=== PATIENT | male | born 1950 | race Caucasian/White ===

== ENCOUNTER 2020-03-17 11:54 | Day surgery (SDC) | payer MEDICARE, SELFPAY ==
[2020-03-10 13:35] VITALS: BMI 34.8
--- NOTE | 2020-03-16 09:37 | HO.ANESPROP2 ---
Documented by User: Katie Ledbetter 03/16/20 09:38 HPI - Anesthesia Eval Consult details Narrative: 69yo M for Colonoscopy PMFSH Past Medical History Medical History ABMD (anterior basement membrane dystrophy) Anxiety and depression DDD (degenerative disc disease) Dyslipidemia GERD (gastroesophageal reflux disease) Mild cognitive impairment Short-term memory loss Sleep apnea Family History Family History Father No problems noted. Mother No problems noted. Surgical History Surgical History H/O transurethral resection of prostate History of hernia repair History of lumbar surgery Hx of colonoscopy Social History Social History Alcohol intake: current Alcohol intake frequency: holidays/special occasions only Smoking Status: Former smoker Smoking Quit Date: 1984 Use of substances other than those prescribed or required for medical reasons: No Advance Directives: No Advance Directives Information Provided: No Advance Directives on File: No Meds Allergies Allergy/AdvReac Type Severity Reaction Status Date / Time peanut [PEANUT] Allergy Intermediate ITCHING/HIV Unverified 02/11/20 16:53 ES ELASTIC Allergy Mild ITCHING Uncoded 02/11/20 16:53 peanuts Allergy Unknown rash Uncoded 02/11/20 16:53 Home Medications Medication Instructions Recorded Confirmed Type escitalopram oxalate 20 mg tablet 20 mg PO BEDTIME 02/11/20 03/10/20 History omeprazole 20 mg capsule,delayed 20 mg PO BEDTIME 02/11/20 03/10/20 History release tamsulosin 0.4 mg capsule 0.4 mg PO BEDTIME 02/11/20 03/10/20 History triamterene 37.5 1 tab PO BEDTIME 02/11/20 03/10/20 History mg-hydrochlorothiazide 25 mg tablet atorvastatin 20 mg PO BEDTIME 03/10/20 03/10/20 History Exam Exam Date and Time: March 16, 2020 0937 Height,Weight and Vital Signs: Height 5 ft 11 in Weight 113.398 kg Assessment and Plan Assessment Anesthesia Assessment: Chart Reviewed Documented by User: Lobito Bowles 03/17/20 12:50 PMFSH Past Medical History Medical History ABMD (anterior basement membrane dystrophy) Anxiety and depression DDD (degenerative disc disease) Dyslipidemia GERD (gastroesophageal reflux disease) Mild cognitive impairment Short-term memory loss Sleep apnea Family History Family History Father No problems noted. Mother No problems noted. Surgical History Surgical History H/O transurethral resection of prostate History of hernia repair History of lumbar surgery Hx of colonoscopy Social History Social History Alcohol intake: current Alcohol intake frequency: holidays/special occasions only Smoking Status: Former smoker Smoking Quit Date: 1984 Use of substances other than those prescribed or required for medical reasons: No Advance Directives: No Advance Directives Information Provided: No Advance Directives on File: No Meds Allergies Allergy/AdvReac Type Severity Reaction Status Date / Time peanut [PEANUT] Allergy Intermediate ITCHING/HIV Unverified 02/11/20 16:53 ES ELASTIC Allergy Mild ITCHING Uncoded 02/11/20 16:53 peanuts Allergy Unknown rash Uncoded 02/11/20 16:53 Home Medications Medication Instructions Recorded Confirmed Type escitalopram oxalate 20 mg tablet 20 mg PO BEDTIME 02/11/20 03/10/20 History omeprazole 20 mg capsule,delayed 20 mg PO BEDTIME 02/11/20 03/10/20 History release tamsulosin 0.4 mg capsule 0.4 mg PO BEDTIME 02/11/20 03/10/20 History triamterene 37.5 1 tab PO BEDTIME 02/11/20 03/10/20 History mg-hydrochlorothiazide 25 mg tablet atorvastatin 20 mg PO BEDTIME 03/10/20 03/10/20 History Exam Airway Mallampati Class: II TM Dist: >3cm Neck ROM: Full Heart: [id number]+[id number] Lungs: cta b/l Assessment and Plan Assessment Anesthesia Assessment: Anesthesia Plan Discussed, PAT Visit and Chart Reviewed Final Anesthetic Review NPO: Yes ASA Class: III Final Preanesthetic Review: No Changes in Pt Med Stat, Meds/Allgs Chart Reviewed, Consent Obtained/Reviewed and Anes Risks/Benef Reviewed Patient Risk: Intermediate Procedure Risk: Low Assessment/Block/Sedation in SS: Assess/Block/Sedation-SS Anesthetic Plan Anesthetic Plan: MAC: Disposition: Standard PACU
--- NOTE | 2020-03-16 22:52 | MHC.SHP ---
Pre-Procedural Eval Section A The patient is an INPATIENT: No Changes since office visit: No Cold of Flu in the past 2 weeks, No New Medical Problems, No Changes in Medication and No Patient answered all questions The History & Physical has been completed within 30 days and I have reviewed it.: Yes Section B Chief Complaint: Screening Allergies: Allergies Allergy/AdvReac Type Severity Reaction Status Date / Time peanut [PEANUT] Allergy Intermediate ITCHING/HIV Unverified 02/11/20 16:53 ES ELASTIC Allergy Mild ITCHING Uncoded 02/11/20 16:53 peanuts Allergy Unknown rash Uncoded 02/11/20 16:53 Plan Patient has been examined and remains a candidate for the planned procedure
[2020-03-17 12:45] VITALS: BP 148/80; PULSE 70; RESP 16; TEMP 36.4; O2SAT 98
[2020-03-17] MEDS: Lactated Ringers 1,000 ML 100 ML IVCONT (12:46)
--- NOTE | 2020-03-17 13:34 | PM.OP ---
Brief Operative Note Date of Service: 03/17/20 Pre-op diagnosis: screening Post-op diagnosis: same (colon polyps) Procedure: colonosocpy Surgeon: Shahzad Ayers Anesthesia: MAC Estimated blood loss (mL): 0 Pathology: other (polyps x2) Condition: stable Disposition: PACU
[2020-03-17 13:37] VITALS: BP 110/71; PULSE 72; RESP 12; TEMP 36.8; O2SAT 92
[2020-03-17 13:44] VITALS: BP 119/68; PULSE 68; RESP 17; O2SAT 97
[2020-03-17 13:53] VITALS: BP 127/74; PULSE 66; RESP 15; TEMP 36.8; O2SAT 97
[2020-03-17 14:03] VITALS: BP 127/74; PULSE 70; RESP 16; O2SAT 96
--- NOTE | 2020-03-17 19:06 | OP_ITS ---
SURGEON: Shahzad Ayers MD INDICATIONS: Colon cancer screening and prior history of adenomatous colon polyps. PREOPERATIVE DIAGNOSIS: POSTOPERATIVE DIAGNOSIS: PROCEDURE PERFORMED: Colonoscopy to the terminal ileum with snare polypectomy and biopsy. ESTIMATED BLOOD LOSS: COMPLICATIONS: ANESTHESIA: ASSISTANTS: SPECIMENS: MEDICATIONS: Monitored anesthesia care. DESCRIPTION OF PROCEDURE: History and physical performed. The risks and benefits of the procedure were explained to the patient. Informed consent was obtained. The patient was placed in the left lateral decubitus position. A digital rectal exam was performed and was found to be normal. The Olympus pediatric video colonoscope was introduced into the rectum and advanced to the cecum without difficulty. The cecum was identified by transillumination, palpation, and identification of ileocecal valve. Examination was performed and the scope was removed. He tolerated the procedure well and was taken to recovery area in stable condition. FINDINGS: The terminal ileum was normal. The visualized colonic mucosa was normal. The quality of the prep was good. Two polyps were identified. Both measured 6 mm were removed with biopsy forceps. Both were removed with a snare. The 2nd was recovered with biopsy forceps. No other polyps were identified. Retroflexed examination showed small internal hemorrhoids. IMPRESSION: Colon polyps. RECOMMENDATION: Follow up the biopsy results. MD HUNTER Reid/GREER / [id number]
== END 2020-03-17 14:47 | disposition home or self-care (01) ==
PROVIDERS: PCP Nurse Practitioner Family; Visit Provider Internal Medicine Gastroenterology
PROC: 0DJD8ZZ Inspection of Lower Intestinal Tract, Via Natural or Artificial Opening Endoscopic (ICD-10-PCS; CPT 45378; principal; 2020-03-17 13:00)
DX: Z12.11 Encounter for screening for malignant neoplasm of colon (principal); Z86.010 Personal history of colon polyps; D12.4 Benign neoplasm of descending colon; D12.5 Benign neoplasm of sigmoid colon; K57.30 Diverticulosis of large intestine without perforation or abscess without bleeding; K64.8 Other hemorrhoids; K21.9 Gastro-esophageal reflux disease without esophagitis; I10 Essential (primary) hypertension; Z79.899 Other long term (current) drug therapy
CPT/HCPCS: 45385; 45380; 88305

== ENCOUNTER 2020-04-23 12:26 | Outpatient (REF) | payer MEDICARE, SELFPAY ==
[2020-04-23 14:29] LABS: Anion Gap 12 (12-20); Blood Urea Nitrogen 11 mg/dL (9-16); Calcium 8.6 mg/dL (8.4-10.2); Carbon Dioxide 32 mmol/L (22-29); Chloride 99 mmol/L (96-108); Cholesterol 145 mg/dL; Estimated Glomerular Filt Rate > 60; Glucose Fasting 106 mg/dL (60-99); HDL Cholesterol 49 mg/dL; LDL Cholesterol Calculated 70 mg/dl; Potassium 3.4 mmol/l (3.3-5.1); Sodium 140 mmol/L (135-145); Triglycerides 130 mg/dL
[2020-04-23 14:55] LABS: TSH reflex Free T4 1.06 mIU/mL (0.32-4.0)
[2020-04-23 15:32] LABS: Prostate Specific Antigen Scr 0.84 ng/mL (<0.05-4.0)
== END 2020-04-23 12:27 | disposition home or self-care (01) ==
LOC: HO.HMGCLDS 12:26
PROVIDERS: PCP Nurse Practitioner Family; Visit Provider Nurse Practitioner Family
DX: Z00.00 Encounter for general adult medical examination without abnormal findings (principal); Z12.5 Encounter for screening for malignant neoplasm of prostate; Z13.29 Encounter for screening for other suspected endocrine disorder; Z13.220 Encounter for screening for lipoid disorders
CPT/HCPCS: 36415; 80048; 80061; 84153; 84443

== ENCOUNTER 2020-09-16 13:02 | Outpatient (REF) | payer MEDICARE, SELFPAY | END 2020-09-16 13:03 | disposition home or self-care (01) | LOC: HO.HMGCLDS 13:02 | PROVIDERS: PCP Nurse Practitioner Family; Visit Provider Urology | DX: Z12.5 Encounter for screening for malignant neoplasm of prostate (principal); N40.1 Benign prostatic hyperplasia with lower urinary tract symptoms; N13.8 Other obstructive and reflux uropathy | CPT/HCPCS: 36415; 84153 ==

== ENCOUNTER → 2020-09-23 14:25 | Outpatient (BNVA) | payer MEDICARE, SELFPAY | PROVIDERS: PCP Nurse Practitioner Family; Visit Provider Urology | DX: N40.1 Benign prostatic hyperplasia with lower urinary tract symptoms (principal); N13.8 Other obstructive and reflux uropathy; R97.20 Elevated prostate specific antigen [PSA] | CPT/HCPCS: 99212 ==

== ENCOUNTER 2021-02-02 12:08 | Outpatient (REF) | payer MEDICARE, SELFPAY ==
[2021-02-02 14:23] LABS: Alanine Aminotransferase 23 U/L (0-40); Albumin Level 4.4 g/dL (3.5-5.0); Alkaline Phosphatase 101 U/L (39-117); Anion Gap 14 (12-20); Aspartate Amino Transferase 18 U/L (5-37); Bilirubin Total 0.8 mg/dL (0.0-1.0); Blood Urea Nitrogen 11 mg/dL (9-16); Calcium 9.2 mg/dL (8.4-10.2); Carbon Dioxide 29 mmol/L (22-29); Chloride 103 mmol/L (96-108); Cholesterol 134 mg/dL; Estimated Glomerular Filt Rate > 60; Glucose Fasting 115 mg/dL (60-99); HDL Cholesterol 44 mg/dL; LDL Cholesterol Calculated 59 mg/dl; Potassium 3.6 mmol/L (3.3-5.1); Sodium 142 mmol/L (135-145); Total Protein 6.9 g/dL (6.5-8.0); Triglycerides 155 mg/dL
[2021-02-02 14:43] LABS: TSH reflex Free T4 1.02 uIU/mL (0.32-4.0)
== END 2021-02-02 12:09 | disposition home or self-care (01) ==
LOC: HO.HMGCLDS 12:08
PROVIDERS: PCP Nurse Practitioner Family; Visit Provider Nurse Practitioner Family
DX: E78.5 Hyperlipidemia, unspecified (principal)
CPT/HCPCS: 36415; 80053; 80061; 84443

== ENCOUNTER → 2021-09-28 14:30 | Outpatient (BNVA) | payer MEDICARE, SELFPAY | PROVIDERS: PCP Nurse Practitioner Family; Visit Provider Urology | DX: N40.1 Benign prostatic hyperplasia with lower urinary tract symptoms (principal); N13.8 Other obstructive and reflux uropathy; R97.20 Elevated prostate specific antigen [PSA] | CPT/HCPCS: 51798; 99212 ==

== ENCOUNTER 2021-12-12 12:34 | Outpatient (REF) | payer MEDICARE, SELFPAY ==
[2021-12-12 14:00] LABS: Appearance Urine Clear; Color Urine Yellow; Glucose Urine UA Negative (Negative); Leukocyte Esterase Urine Negative (Negative); Nitrite Urine Negative (Negative); Specific Gravity - Urine 1.015 (1.005-1.025); Urine Blood Negative (Negative); Urine Ketones Negative (Negative); Urine Protein Negative (Neg-Trace)
[2021-12-12 14:36] LABS: Alanine Aminotransferase 23 U/L (0-40); Albumin Level 4.2 g/dL (3.5-5.0); Alkaline Phosphatase 104 U/L (39-117); Anion Gap 14 (12-20); Aspartate Amino Transferase 17 U/L (5-37); Bilirubin Total 0.7 mg/dL (0.0-1.0); Blood Urea Nitrogen 9 mg/dL (9-16); Calcium 9.1 mg/dL (8.4-10.2); Carbon Dioxide 29 mmol/L (22-29); Chloride 105 mmol/L (96-108); Cholesterol 135 mg/dL; Estimated Glomerular Filt Rate > 60; Glucose Fasting 126 mg/dL (60-99); HDL Cholesterol 47 mg/dL; LDL Cholesterol Calculated 65 mg/dl; Potassium 3.8 mmol/L (3.3-5.1); Sodium 144 mmol/L (135-145); Total Protein 6.8 g/dL (6.5-8.0); Triglycerides 118 mg/dL
[2021-12-12 14:48] LABS: Prostate Specific Antigen Scr 0.66 ng/mL (<0.05-4.0); TSH reflex Free T4 1.41 uIU/mL (0.32-4.0)
== END 2021-12-12 12:35 | disposition home or self-care (01) ==
LOC: HO.HMGCLDS 12:34
PROVIDERS: PCP Nurse Practitioner Family; Visit Provider Nurse Practitioner Family
DX: Z12.5 Encounter for screening for malignant neoplasm of prostate (principal); R97.20 Elevated prostate specific antigen [PSA]; F41.9 Anxiety disorder, unspecified
CPT/HCPCS: 36415; 80053; 80061; 81003; 84153; 84443

== ENCOUNTER 2022-09-27 13:49 | Outpatient (REF) | payer MEDICARE, SELFPAY ==
[2022-09-27 17:44] LABS: Prostate Specific Antigen 0.66 ng/mL (<0.05-4.0)
== END 2022-09-27 13:50 | disposition home or self-care (01) ==
LOC: HO.HMGCLDS 13:49
PROVIDERS: PCP Nurse Practitioner Family; Visit Provider Urology
DX: Z12.5 Encounter for screening for malignant neoplasm of prostate (principal); N13.8 Other obstructive and reflux uropathy; R97.20 Elevated prostate specific antigen [PSA]; N40.1 Benign prostatic hyperplasia with lower urinary tract symptoms
CPT/HCPCS: 36415; 84153

== ENCOUNTER → 2022-09-29 14:41 | Outpatient (BNVA) | payer MEDICARE, SELFPAY | PROVIDERS: PCP Nurse Practitioner Family; Visit Provider Urology | DX: E11.69 Type 2 diabetes mellitus with other specified complication (principal); N52.1 Erectile dysfunction due to diseases classified elsewhere; N40.1 Benign prostatic hyperplasia with lower urinary tract symptoms; N13.8 Other obstructive and reflux uropathy | CPT/HCPCS: 51798; 99212 ==

== ENCOUNTER 2022-11-27 13:42 | Outpatient (REF) | payer MEDICARE, SELFPAY ==
[2022-11-27 16:14] LABS: MANUAL DIFF FLAG NO
[2022-11-27 16:15] LABS: Basophils Percent Auto 0.4 % (0-2); Eosinophils Absolute Auto 0.1 X10*3/uL (0.0-0.4); Hematocrit 44.9 % (42.0-52.0); Hemoglobin 15.3 g/dl (14.0-18.0); Lymphocytes Absolute Auto 1.1 X10*3/uL (1.2-4.9); Lymphocytes Percent Auto 24.1 % (20-40); Mean Corpuscular HGB Conc 34.1 g/dl (31.0-36.0); Mean Corpuscular Hemoglobin 31.6 pg (27.0-33.0); Mean Corpuscular Volume 92.8 fL (80.0-98.0); Mean Platelet Volume 11.8 fL (9.4-12.4); Monocytes Absolute Auto 0.4 X10*3/uL (0.1-1.2); Monocytes Percent Auto 8.6 % (2-11); Neutrophils Percent Auto 63.9 % (45-73); Platelet Count 166 X10*3/uL (160-400); Red Blood Count 4.84 X10*6/uL (4.60-5.80); Red Cell Distribution Width 13.3 % (11.0-16.0); White Blood Count 4.6 X10*3/uL (4.8-10.8)
[2022-11-28 02:22] LABS: Alanine Aminotransferase 22 U/L (0-40); Albumin Level 4.2 g/dL (3.5-5.0); Alkaline Phosphatase 90 U/L (39-117); Anion Gap 12 (12-20); Aspartate Amino Transferase 19 U/L (5-37); Bilirubin Total 0.8 mg/dL (0.0-1.0); Blood Urea Nitrogen 13 mg/dL (9-16); Calcium 9.3 mg/dL (8.4-10.2); Carbon Dioxide 27 mmol/L (22-29); Chloride 107 mmol/L (96-108); Cholesterol 138 mg/dL; Estimated Glomerular Filt Rate > 60; Glucose Fasting 116 mg/dL (60-99); HDL Cholesterol 52 mg/dL; LDL Cholesterol Calculated 66 mg/dl; Potassium 3.6 mmol/L (3.3-5.1); Sodium 142 mmol/L (135-145); TSH reflex Free T4 1.05 uIU/mL (0.32-4.0); Total Protein 6.9 g/dL (6.5-8.0); Triglycerides 102 mg/dL
[2022-11-28 02:27] LABS: Folate 15.2 ng/mL (> or = 4.0); Vitamin B12 526 pg/mL (200-900)
[2022-11-30 08:24] LABS: Methylmalonic Acid 125 nmol/L (87-318)
== END 2022-11-27 13:43 | disposition home or self-care (01) ==
LOC: HO.HMGCLDS 13:42
PROVIDERS: PCP Nurse Practitioner Family; Visit Provider Nurse Practitioner Family
DX: R41.3 Other amnesia (principal); E11.9 Type 2 diabetes mellitus without complications
CPT/HCPCS: 36415; 80053; 80061; 82607; 82746; 83921; 84443; 85025

== ENCOUNTER 2022-11-29 11:38 | Outpatient (REF) | payer MEDICARE, SELFPAY ==
[2022-11-29 16:06] LABS: Appearance Urine Clear; Color Urine Yellow; Glucose Urine UA Negative (Negative); Leukocyte Esterase Urine Negative (Negative); Nitrite Urine Negative (Negative); PH 5.5 (5.0-9.0); Specific Gravity - Urine 1.015 (1.005-1.025); Urine Blood Negative (Negative); Urine Ketones Negative (Negative); Urine Protein Negative (Neg-Trace)
[2022-11-29 16:40] LABS: Creatinine Urine 99.19 mg/dL; Microalbumin Urine < 5.0 mg/L
== END 2022-11-29 11:39 | disposition home or self-care (01) ==
LOC: HO.HMGCLNP 11:38
PROVIDERS: PCP Nurse Practitioner Family; Visit Provider Nurse Practitioner Family
DX: E11.9 Type 2 diabetes mellitus without complications (principal)
CPT/HCPCS: 81003; 82043

== ENCOUNTER 2022-11-29 12:58 | Outpatient (AMB) | payer MEDICARE, SELFPAY ==
--- NOTE | 2022-11-29 13:10 | MHC.PC.OV ---
Vital Signs 11/29/22 13:11 Height 5 ft 11 in Weight 247 lb 8 oz BMI 34.5 BP 130/86 Blood Pressure Location Rt brachial Position Sitting Pulse 71 Pulse Source Pulse Oximeter Pulse Oximetry (%) 97 Oxygen Delivery Method Room Air Intake Visit Reasons: 4 month follow up Allergies peanut [PEANUT] Allergy (Intermediate, Verified 09/29/22 15:01) ITCHING/HIVES naproxen Adverse Reaction (Mild, Verified 09/29/22 15:01) Hives ELASTIC Allergy (Mild, Uncoded 09/29/22 15:01) ITCHING Tobacco use date assessed: 07/26/21 HPI 4 month follow up HPI Details Pt is a diabetic, on a statin. A1c in office today is 5.4. Due for microalbumin, will order. Denies polyuria, polydipsia, does report neuropathy. Pt denies any signs and symptoms of hypoglycemia and does know how to correct it. Pt reports that his blood sugar averages in the 130s-160s. [facility] Medical History ABMD (anterior basement membrane dystrophy) Anxiety and depression DDD (degenerative disc disease) Dyslipidemia GERD (gastroesophageal reflux disease) Irregular heart rhythm Mild cognitive impairment Short-term memory loss Sleep apnea Surgical History H/O transurethral resection of prostate History of hernia repair History of lumbar surgery Hx of colonoscopy Family History Father No problems noted. Mother No problems noted. Social History Housing: House Alcohol intake: current Alcohol intake frequency: holidays/special occasions only Patient Tobacco Use Status: Former Tobacco user Quit Date: 1984 Years Smoked: Quit in 1984 e-Cigarette/Vaping Use: Never Used Second Hand Smoke Exposure: No Current occupational status: retired Cognitive needs: No Hearing needs: No Vision needs: No Questionnaire Thrive Questionnaire Date Thrive assessed: 04/27/22 NIA-7 AMB Questionnaire NIA-7 Date NIA - 7 assessed: 04/27/22 Source: Developed by Drs. Parish L. DomoChandrika jones, Tod Keen and colleagues, with an educational florina from [employer]. Review of Systems Const Reports as per HPI Physical exam (Primary Care) Vital Signs: Last Vital Signs Pulse 71 11/29/22 13:11 BP 130/86 11/29/22 13:11 Pulse Ox 97 11/29/22 13:11 Oxygen Delivery Method Room Air 11/29/22 13:11 BMI result Body Mass Index 34.5 Tobacco/Smoking Status: Tobacco use Status Tobacco use date assessed 07/26/21 11/29/22 13:10 Patient Tobacco Use Status Former Tobacco user 11/29/22 13:10 Tobacco use type 07/28/22 13:56 e-Cigarette/Vaping Use Never Used 11/29/22 13:10 Thrive Assessment: Date of Thrive Assessment Date Thrive assessed 04/27/22 11/29/22 13:10 Const General: cooperative Nutritional Appearance: obese Orientation/consciousness: patient oriented x3 Resp Effort & Inspection: normal respiratory effort Auscultation: clear to auscultation bilaterally Cardio Rate: regular rate Rhythm: regular rhythm Heart sounds: S1 normal heart sound present and S2 normal heart sound present Neuro General: patient oriented x3 Extrem Other: bilat feet: + sensation with use of monofilament Psych Appearance: grossly normal Mental Status: mental status grossly normal Speech and movement: Normal speech and movement present Affect: normal affect Attitude: cooperative Thought process: Normal thought process present Thought content: Normal thought content present Insight: Good insight present (Psych) Judgement: Good judgement present (Psych) Results AMB Hemoglobin A1c AMB Hemoglobin A1c 5.4 % Last Edit by Destini Panchal CMA on 11/29/22 13:54 Results Reviewed Results Reviewed: Laboratory Last Values Hgb A1c (Clinic) 5.4 % (4.0-6.0) 11/29/22 13:32 Assessment and Plan Assessment & Plan (1) Newly diagnosed diabetes: Code(s): E11.9 - Type 2 diabetes mellitus without complications Plan The patient agreed to the use of a health care / medical job titles for this encounter. Scribed for YASMINE Nayak by Gabrielle Aquino health care / medical job titles, on 11/29/2022 at 13:30 EST. Orders: Orders AMB Hemoglobin A1c Today E11.9 - Type 2 diabetes mellitus without complications Medications: New fluocinonide 0.05% 1 appl topical BID-QID PRN 60 mL 1RF rash Coding Level of Care Code Est Pt Level 3 (11288) Diagnoses Newly diagnosed diabetes E11.9
[2022-11-29 13:11] VITALS: BP 130/86; PULSE 71; O2SAT 97; BMI 34.5
== END 2022-11-29 14:20 | disposition home or self-care (01) ==
PROVIDERS: PCP Nurse Practitioner Family; Visit Provider Nurse Practitioner Family
DX: E11.9 Type 2 diabetes mellitus without complications (principal)
CPT/HCPCS: 83036; 99213

== ENCOUNTER 2023-01-03 14:02 | Outpatient (AMB) | payer MEDICARE, SELFPAY ==
--- NOTE | 2023-01-03 14:03 | A.OFFVIS_ITS ---
Intake Intake Visit Reasons: 3m follow up Intake Note: Patient is present for Telephone Follow up Urology Med: Tamsulosin, Tadalafil Antibiotic Allergy:None Blood Thinner: None Pharmacy: [facility] Allergies peanut [PEANUT] Allergy (Intermediate, Verified 01/03/23 14:03) ITCHING/HIVES naproxen Adverse Reaction (Mild, Verified 01/03/23 14:03) Hives ELASTIC Allergy (Mild, Uncoded 01/03/23 14:03) ITCHING HPI HPI Comments History of Present Illness Details Colton is a pleasant male. He is a patient Dr. Powers. He is seen for current urologic conditions - BPH - prior elevated PSA - erectile dysfunction Telemedicine Evaluation 15 min Consultation [employer] attempted PVR low PSA low Secondary conditions erectile dysfunction in setting of diabetes Did have some leg swelling with tadalafil 10 mg daily Will try every other day Erectile dysfunction in setting of type 2 diabetes Type 2 diabetes on metformin Other medications include buspirone, escitalopram Medications - 10mg daily - had leg swelling Lower urinary tract symptoms Good control with tamsulosin Reports occasional hesitancy, occasional nocturia but overall good stream and effective emptying No noted side effects Prior prostate intervention - TURP in the past PSA 09/03 0.7, 09/05 0.6 PFSH Medical History Irregular heart rhythm Sleep apnea Mild cognitive impairment Short-term memory loss Dyslipidemia ABMD (anterior basement membrane dystrophy) DDD (degenerative disc disease) GERD (gastroesophageal reflux disease) Anxiety and depression Surgical History Hx of colonoscopy H/O transurethral resection of prostate History of lumbar surgery History of hernia repair Family History Father No problems noted. Mother No problems noted. Social History Housing: House Alcohol intake: current Alcohol intake frequency: holidays/special occasions only Patient Tobacco Use Status: Former Tobacco user Quit Date: 1984 Years Smoked: Quit in 1984 e-Cigarette/Vaping Use: Never Used Second Hand Smoke Exposure: No Current occupational status: retired Cognitive needs: No Hearing needs: No Vision needs: No Review of Systems Const All systems reviewed & are unremarkable except as noted in HPI and below Reports no additional complaints Resp Reports no additional complaints GI Reports no additional complaints Reports as per HPI Musc Reports no additional complaints Physical Exam Telemedicine evaluation Appropriate responses Regular breathing rate and rhythm HEENT Head: Yes normal to inspection Ears: hearing grossly normal bilaterally Eyes General: appearance normal, both eyes and all related structures Neck Neck: Yes normal visual inspection Chest Chest palpation & inspection: normal inspection of the chest Resp Effort & Inspection: normal respiratory effort and able to speak in complete sentences Assessment & Plan Assessment & Plan (1) Erectile dysfunction associated with type 2 diabetes mellitus: Code(s): E11.69 - Type 2 diabetes mellitus with other specified complication; N52.1 - Erectile dysfunction due to diseases classified elsewhere (2) Elevated PSA: Code(s): R97.20 - Elevated prostate specific antigen [PSA] (3) BPH w urinary obs/LUTS: Code(s): N40.1 - Benign prostatic hyperplasia with lower urinary tract symptoms; N13.8 - Other obstructive and reflux uropathy Plan Three month follow-up Patient Instructions: Imaging studies, laboratory and physical exam results were discussed and reviewed in detail. No major barriers to patient understanding were identified. An opportunity to ask questions regarding the treatment plan was provided. All questions were answered. The patient expressed understanding and agreement with the above treatment plan. The patient is aware they should contact our office by phone for worsening of their current condition or the appearance of new urologic symptoms. Compliance is encouraged with any medications and followup testing that is ordered. It is a privilege to participate in the urologic care of your patient. If you have any questions or concerns regarding treatment for the above conditions, or other urologic issues, please do not hesitate to contact me. The office telephone contact is [phone]. This note is constructed using voice recognition software. While every effort has been made to ensure accuracy special trackwork blacksmith errors may have been included. Yours sincerely, Dr Jose Pandya MD, [facility] - Urology Providers of Expert, Compassionate Care for the Genitourinary System Telehealth Telehealth Location of provider rendering services: practice address Location of patient: address on file Patient Identification confirmed using: Name, : Yes Telehealth method: video Patient verbally consented to treatment: Yes Patient verbally consented to billing insurance company: Yes Patient informed of any privacy concerns related to visit: Yes Coding Level of Care Code Tele Est Pt Level 4 (11660) Diagnoses Erectile dysfunction associated with type 2 diabetes mellitus E11.69; N52.1 Elevated PSA R97.20 BPH w urinary obs/LUTS N40.1; N13.8
== END 2023-01-03 14:14 | disposition home or self-care (01) ==
LOC: HO.HUSH 14:02
PROVIDERS: PCP Nurse Practitioner Family; Visit Provider Urology
DX: E11.69 Type 2 diabetes mellitus with other specified complication (principal); N52.1 Erectile dysfunction due to diseases classified elsewhere; R97.20 Elevated prostate specific antigen [PSA]; N40.1 Benign prostatic hyperplasia with lower urinary tract symptoms; N13.8 Other obstructive and reflux uropathy
CPT/HCPCS: 99214

== ENCOUNTER → 2023-01-03 14:02 | Outpatient (BNVA) | payer MEDICARE, SELFPAY | PROVIDERS: PCP Nurse Practitioner Family; Visit Provider Urology ==

== ENCOUNTER 2023-01-25 08:53 | Outpatient (REF) | payer MEDICARE, SELFPAY ==
[2023-01-25 11:32] LABS: Creatinine Urine 126.47 mg/dL; Microalbumin Urine < 5.0 mg/L
[2023-01-26 19:43] LABS: Homocysteine 10.8 umol/L (<11.4)
== END 2023-01-25 08:54 | disposition home or self-care (01) ==
LOC: HO.LAB 08:53
PROVIDERS: PCP Nurse Practitioner Family; Visit Provider Nurse Practitioner Family
DX: E11.9 Type 2 diabetes mellitus without complications (principal); R41.3 Other amnesia
CPT/HCPCS: 36415; 82043; 82570; 83090

== ENCOUNTER 2023-04-06 13:23 | Outpatient (AMB) | payer MEDICARE, SELFPAY ==
--- NOTE | 2023-04-06 13:52 | MHC.OFFVIS ---
Intake Intake Visit Reasons: 3m follow up Allergies peanut [PEANUT] Allergy (Intermediate, Verified 01/03/23 14:03) ITCHING/HIVES naproxen Adverse Reaction (Mild, Verified 01/03/23 14:03) Hives ELASTIC Allergy (Mild, Uncoded 01/03/23 14:03) ITCHING HPI HPI Comments History of Present Illness Details Colton is a pleasant male. He is a patient Dr. Powers. He is seen for current urologic conditions - BPH - prior elevated PSA - erectile dysfunction Telemedicine Evaluation 15 min Consultation [employer] Video attempted Follow-up from trial of tadalafil every other day Continued benefit Six month follow-up PVR Erectile dysfunction in setting of type 2 diabetes Type 2 diabetes on metformin Other medications include buspirone, escitalopram Medications - 10mg daily - had leg swelling Responded to every other day Lower urinary tract symptoms Good control with tamsulosin Reports occasional hesitancy, occasional nocturia but overall good stream and effective emptying No noted side effects Prior prostate intervention - TURP in the past PSA 09/03 0.7, 09/05 0.6 PFSH Medical History Irregular heart rhythm Sleep apnea Mild cognitive impairment Short-term memory loss Dyslipidemia ABMD (anterior basement membrane dystrophy) DDD (degenerative disc disease) GERD (gastroesophageal reflux disease) Anxiety and depression Surgical History Hx of colonoscopy H/O transurethral resection of prostate History of lumbar surgery History of hernia repair Family History Father No problems noted. Mother No problems noted. Social History Housing: House Alcohol intake: current Alcohol intake frequency: holidays/special occasions only Patient Tobacco Use Status: Former Tobacco user Quit Date: 1984 Years Smoked: Quit in 1984 e-Cigarette/Vaping Use: Never Used Second Hand Smoke Exposure: No Current occupational status: retired Cognitive needs: No Hearing needs: No Vision needs: No Review of Systems Const All systems reviewed & are unremarkable except as noted in HPI and below Reports no additional complaints Resp Reports no additional complaints GI Reports no additional complaints Reports as per HPI Musc Reports no additional complaints Physical Exam Telemedicine evaluation Appropriate responses Regular breathing rate and rhythm HEENT Head: Yes normal to inspection Ears: hearing grossly normal bilaterally Eyes General: appearance normal, both eyes and all related structures Neck Neck: Yes normal visual inspection Chest Chest palpation & inspection: normal inspection of the chest Resp Effort & Inspection: normal respiratory effort and able to speak in complete sentences Assessment & Plan Assessment & Plan (1) Erectile dysfunction associated with type 2 diabetes mellitus: Code(s): E11.69 - Type 2 diabetes mellitus with other specified complication; N52.1 - Erectile dysfunction due to diseases classified elsewhere (2) BPH w urinary obs/LUTS: Code(s): N40.1 - Benign prostatic hyperplasia with lower urinary tract symptoms; N13.8 - Other obstructive and reflux uropathy Plan Six month follow-up PVR Patient Instructions: Imaging studies, laboratory and physical exam results were discussed and reviewed in detail. No major barriers to patient understanding were identified. An opportunity to ask questions regarding the treatment plan was provided. All questions were answered. The patient expressed understanding and agreement with the above treatment plan. The patient is aware they should contact our office by phone for worsening of their current condition or the appearance of new urologic symptoms. Compliance is encouraged with any medications and followup testing that is ordered. It is a privilege to participate in the urologic care of your patient. If you have any questions or concerns regarding treatment for the above conditions, or other urologic issues, please do not hesitate to contact me. The office telephone contact is [phone]. This note is constructed using voice recognition software. While every effort has been made to ensure accuracy media services specialist errors may have been included. Yours sincerely, Dr Jose Pandya MD, [facility] - Urology Providers of Expert, Compassionate Care for the Genitourinary System Telehealth Telehealth Location of provider rendering services: practice address Location of patient: address on file Patient Identification confirmed using: Name, : Yes Telehealth method: video Patient verbally consented to treatment: Yes Patient verbally consented to billing insurance company: Yes Patient informed of any privacy concerns related to visit: Yes Coding Level of Care Code Tele Est Pt Level 3 (50548) Diagnoses Erectile dysfunction associated with type 2 diabetes mellitus E11.69; N52.1 BPH w urinary obs/LUTS N40.1; N13.8
== END 2023-04-06 14:31 | disposition home or self-care (01) ==
LOC: HO.HUSH 13:23
PROVIDERS: PCP Nurse Practitioner Family; Visit Provider Urology
DX: E11.69 Type 2 diabetes mellitus with other specified complication (principal); N52.1 Erectile dysfunction due to diseases classified elsewhere; N40.1 Benign prostatic hyperplasia with lower urinary tract symptoms; N13.8 Other obstructive and reflux uropathy
CPT/HCPCS: 99213

== ENCOUNTER → 2023-04-06 13:23 | Outpatient (BNVA) | payer MEDICARE, SELFPAY | PROVIDERS: PCP Nurse Practitioner Family; Visit Provider Urology ==

== ENCOUNTER 2023-05-22 09:01 | Outpatient (AMB) | payer MEDICARE, SELFPAY ==
[2023-05-22 10:19] VITALS: BP 140/70; PULSE 73; TEMP 36.5; O2SAT 96; BMI 36.7
--- NOTE | 2023-05-22 10:19 | AM.OFFWIN_ITS ---
Intake Vital Signs 05/22/23 10:19 Height 5 ft 11 in Weight 263 lb BMI 36.7 BP 140/70 H Blood Pressure Location Lt brachial Position Sitting Pulse 73 Pulse Source Pulse Oximeter Temp 97.7 F Temp Source Temporal Artery Scan Pulse Oximetry (%) 96 Oxygen Delivery Method Room Air Intake Visit Reasons: EP lower LFT side back pain (lobby) Intake Note: pt is here today for lower lft side back pain started 1 week ago Patient Tobacco Use Status: Former Tobacco user Quit Date: 1984 Allergies peanut [PEANUT] Allergy (Intermediate, Verified 05/22/23 10:20) ITCHING/HIVES naproxen Adverse Reaction (Mild, Verified 05/22/23 10:20) Hives ELASTIC Allergy (Mild, Uncoded 01/03/23 14:03) ITCHING Do you need a note to return to daycare/school/sports/work: No HPI EP lower LFT side back pain (lobby) HPI Details Patient presents to the office for a sick visit. Complaining of lower back pain for the past week. No history of fall or trauma prior to the onset of symptoms. No urinary incontinence. No fevers or chills. Pain is worse on bending forwards or sideways. Relieve done sitting down. Pain is radiating into the gluteal area. [facility] Medical History Irregular heart rhythm Sleep apnea Mild cognitive impairment Short-term memory loss Dyslipidemia ABMD (anterior basement membrane dystrophy) DDD (degenerative disc disease) GERD (gastroesophageal reflux disease) Anxiety and depression Surgical History Hx of colonoscopy H/O transurethral resection of prostate History of lumbar surgery History of hernia repair Family History Father No problems noted. Mother No problems noted. Social History Housing: House Alcohol intake: current Alcohol intake frequency: holidays/special occasions only Patient Tobacco Use Status: Former Tobacco user Quit Date: 1984 Years Smoked: Quit in 1984 e-Cigarette/Vaping Use: Never Used Second Hand Smoke Exposure: No Current occupational status: retired Cognitive needs: No Hearing needs: No Vision needs: No Physical Exam Vital Signs: Last Vital Signs Temp 97.7 F 05/22/23 10:19 Pulse 73 05/22/23 10:19 BP 140/70 H 05/22/23 10:19 Pulse Ox 96 05/22/23 10:19 Oxygen Delivery Method Room Air 05/22/23 10:19 BMI result Body Mass Index 36.7 Back/Spine/Pelvis Other: No spinal tenderness or paraspinal spasm. Range of motion at the right and left hip is adequate. Assessment & Plan Assessment & Plan (1) Lower thoracic back pain: Code(s): M54.6 - Pain in thoracic spine Plan: Meloxicam and cyclobenzaprine called in. . Patient was advised rest. Note for work if necessary provided. Once pain symptoms subside, patient should start physical therapy. If symptoms worsen to follow-up here. Coding Level of Care Code Est Pt Level 3 (66541) Diagnoses Lower thoracic back pain M54.6
== END 2023-05-22 11:09 | disposition home or self-care (01) ==
PROVIDERS: PCP Nurse Practitioner Family; Visit Provider Internal Medicine
DX: M54.6 Pain in thoracic spine (principal)
CPT/HCPCS: 99213

== ENCOUNTER 2023-06-28 09:25 | Outpatient (AMB) | payer MEDICARE, SELFPAY ==
--- NOTE | 2023-06-28 09:32 | MHC.PC.OV ---
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 Accompanied by: Spouse Allergies peanut [PEANUT] Allergy (Intermediate, Verified 06/28/23 11:23) ITCHING/HIVES naproxen Adverse Reaction (Mild, Verified 06/28/23 11:23) Hives ELASTIC Allergy (Mild, Uncoded 06/28/23 11:23) ITCHING Medication List - Last Reconciled 06/28/23 by WING Chong- atorvastatin 20 mg PO DAILY buspirone 7.5 mg PO BID 90 days compr.stocking,knee,long,x-lrg daily use [compress stockings 4 pairs ] [CPAP with tubing and mask place mask as directed on face prior to falling asleep with settings prescribed by [facility] ] cyclobenzaprine 10 mg PO BEDTIME escitalopram oxalate 20 mg PO BEDTIME famotidine (Zantac-360 (famotidine)) 20 mg PO BEDTIME Flomax (tamsulosin) 0.4 mg PO BEDTIME 90 days NS fluocinonide 0.05% 1 appl topical BID-QID PRN lancets (OneTouch Delica Plus Lancet) test blood sugar twice a day memantine (Namenda) 5 mg PO BID omeprazole 20 mg PO DAILY OneTouch Delica Lancets (lancets) Use to check blood sugar twice daily, once fasting and another random during the day NS OneTouch Ultra Test (blood sugar diagnostic) Use to check blood sugar twice daily, once fasting and another random during the day NS OneTouch Ultra2 Meter (blood-glucose meter) Use to check blood sugar twice daily, once fasting and another random during the day NS tadalafil 10 mg PO DAILY 90 days triamterene-hydrochlorothiazid 37.5-25 mg 1 tab PO QAM 90 days Tobacco use date assessed: 06/28/23 Fall risk assessment: No Falls in past year Last assessed Fall Risk: 06/28/23 Dental Screening Dental Screen Date: 06/28/23 Did you have a dental visit in the last 12 months?: Yes Did you have a dental problem in the last 6 months where you did not have access to dental care?: No Was dental information given to patient?: Yes HPI 3M Follow up, rescheduled from 03/15 HPI Details Pt is a diabetic, on a statin. A1C in office today is 6.6. Microalbumin is up to date. Denies polyuria, polydipsia, does report neuropathy. Pt denies any signs and symptoms of hypoglycemia and does know how to correct it. Pt reports swelling to his LLE. Denies calf redness and warmth, does report calf tenderness. Will order US to r/o DVT. Pt reports pain in his feet. ? neuropathy component. Will send gabapentin. Refuses vaccinations. [facility] Medical History Irregular heart rhythm Sleep apnea Mild cognitive impairment Short-term memory loss Dyslipidemia ABMD (anterior basement membrane dystrophy) DDD (degenerative disc disease) GERD (gastroesophageal reflux disease) Anxiety and depression Surgical History Hx of colonoscopy H/O transurethral resection of prostate History of lumbar surgery History of hernia repair Family History Father No problems noted. Mother No problems noted. Social History Housing: House Alcohol intake: current Alcohol intake frequency: holidays/special occasions only Patient Tobacco Use Status: Former Tobacco user Quit Date: 1984 Smoked: Quit in 1984 e-Cigarette/Vaping Use: Never Used Second Hand Smoke Exposure: No Current occupational status: retired Cognitive needs: No Hearing needs: No Vision needs: No Questionnaire PHQ-9 Over the last 2 weeks, how often have you been bothered by any of the following problems? 1. Little interest or pleasure in doing things: not at all 2. Feeling down, depressed, or hopeless: not at all 3. Trouble falling or staying asleep, or sleeping too much: several days 4. Feeling tired or having little energy: more than half the days 5. Poor appetite or overeating: not at all 6. Feeling bad about yourself - or that you are a failure or have let yourself or your family down: not at all 7. Trouble concentrating on things, such as reading the newspaper or watching television: not at all 8. Moving or speaking so slowly that other people could have noticed. Or the opposite - being so fidgety or restless that you have been moving around a lot more than usual: not at all 9. Thoughts that you would be better off or of hurting yourself in some way: not at all Total score: 3 Depression Screening Interpretation: Negative Depression Screening Done: Yes 41802 - PHQ-9 Billing: Yes Source: Developed by Drs. Parish Oliveros, Chandrika Bob, Tod Keen and colleagues, with an educational florina from [employer]. Thrive Questionnaire Date Thrive assessed: 06/28/23 I am a: Patient What is your living situation today?: I have a steady place to live Within the past 12 months, did the food you bought not last and you didn't have the money to get more?: Never true Within the past 12 months, did you worry whether your food would run out before you got money to buy more?: Never true Do you have trouble paying for medicines?: No Do you have trouble getting transportation to medical appointments?: No Do you have trouble paying your heating and electricity bill?: No Do you have trouble taking care of your child, family member or friend?: No Do you have trouble with day-to-day activities such as bathing, preparing meals, shopping, managing finances, etc.?: No Are you currently unemployed and looking for a job?: No Are you interested in more education?: No Please select the resources that you would like help with: None Currently or been in a relationship where the following occur: no concerns reported THRIVE Score: 0 AUDIT C Alcohol Use Questionnaire (AUDIT-C) 1. How often do you have a drink containing alcohol?: Monthly or less Total Score: 1 Score Reviewed/Action Taken: Yes NIA-7 AMB Questionnaire NIA-7 Date NIA - 7 assessed: 06/28/23 Feeling nervous, anxious, or on edge: 0 = Not at all Not being able to stop or control worryin = Not at all Worrying too much about different things: 0 = Not at all Trouble relaxin = Not at all Being so restless that it is hard to sit still: 0 = Not at all Becoming easily annoyed or irritable: 3 = Nearly every day Feeling afraid as if something awful might happen: 0 = Not at all Total NIA-7 score (0-4 normal; 5-9 mild; 10-14 moderate; 15-21 severe): 3 Source: Developed by Drs. Parish Oliveros, Chandrika Bob, Tod Keen and colleagues, with an educational florina from [employer]. NIA-7 Assessment Billing NIA-7 Assessment Tool: NIA-7 Assessment 17818 Review of Systems Const Reports as per HPI Physical exam (Primary Care) Vital Signs: Last Vital Signs Pulse 70 06/28/23 09:34 BP 132/74 06/28/23 09:52 Pulse Ox 94 06/28/23 09:34 Oxygen Delivery Method Room Air 06/28/23 09:34 BMI result Body Mass Index 36.4 Tobacco/Smoking Status: Tobacco use Status Tobacco use date assessed 06/28/23 06/28/23 09:37 Patient Tobacco Use Status Former Tobacco user 06/28/23 09:37 Tobacco use type 07/28/22 13:56 e-Cigarette/Vaping Use Never Used 06/28/23 09:37 PHQ-9: PHQ-9 Score PHQ-9: Total score 3 06/28/23 09:54 Depression Screening Interpretation: Negative Thrive Assessment: Date of Thrive Assessment Date Thrive assessed 06/28/23 06/28/23 09:54 Currently or been in a relationship where the following occur: no concerns reported Const General: cooperative Orientation/consciousness: patient oriented x3 Resp Effort & Inspection: normal respiratory effort Auscultation: clear to auscultation bilaterally Cardio Rate: regular rate Rhythm: regular rhythm Heart sounds: S1 normal heart sound present and S2 normal heart sound present Neuro General: patient oriented x3 Extrem Other: bilat feet: + sensation with use of monofilament, feet intact, +1 edema to LLE, slight calf tenderness with palpation Psych Appearance: grossly normal Mental Status: mental status grossly normal Speech and movement: Normal speech and movement present Affect: normal affect Attitude: cooperative Thought process: Normal thought process present Thought content: Normal thought content present Insight: Good insight present (Psych) Judgement: Good judgement present (Psych) Assessment and Plan Assessment & Plan (1) Diabetes: Code(s): E11.9 - Type 2 diabetes mellitus without complications Plan: Labs ordered (2) Swelling of left lower extremity: Code(s): M79.89 - Other specified soft tissue disorders Plan: US ordered Plan The patient agreed to the use of a medical practice manager for this encounter. Scribed for YASMINE Nayak by Gabrielle Aquino medical practice manager, on 06/28/2023 at 09:50 EST. Orders: Orders Comprehensive [place]. Panel Fast Today E11.9 - Type 2 diabetes mellitus without complications TSH reflex Free T4 Today E11.9 - Type 2 diabetes mellitus without complications UA CC w/rflx Micro + Cult Today E11.9 - Type 2 diabetes mellitus without complications Complete Blood Count Auto Diff Today E11.9 - Type 2 diabetes mellitus without complications Lipid Panel Today E11.9 - Type 2 diabetes mellitus without complications US venous duplex LE LT Today M79.89 - Other specified soft tissue disorders Medications: New gabapentin 200 mg (2 x 100 mg) PO BEDTIME 60 caps 2RF 30 days Coding Level of Care Code Est Pt Level 3 (70148) Diagnoses Diabetes E11.9 Swelling of left lower extremity M79.89 Additional Codes NIA-7 Assessment Billing - NIA-7 Assessment Tool: NIA-7 Assessment [id number] ([id number])
[2023-06-28 09:34] VITALS: BP 150/80; PULSE 70; O2SAT 94; BMI 36.4
[2023-06-28 09:52] VITALS: BP 132/74
== END 2023-06-28 10:44 | disposition home or self-care (01) ==
PROVIDERS: PCP Nurse Practitioner Family; Visit Provider Nurse Practitioner Family
DX: E11.9 Type 2 diabetes mellitus without complications (principal); M79.89 Other specified soft tissue disorders
CPT/HCPCS: 99213

== ENCOUNTER 2023-06-28 15:19 | Outpatient (REF) | payer MEDICARE, SELFPAY ==
--- NOTE | ~2023-06-28 | US_ITS ---
EXAMINATION: US VENOUS ULTRASOUND WITH DOPPLER LOWER EXTREMITY, LEFT CLINICAL INFORMATION: Left leg swelling COMPARISON: None available. TECHNIQUE: Ultrasound of the deep veins is performed from the hip to the calf with compression sonography and color and pulse Doppler assessment. Spectral analysis with color-flow imaging is performed. FINDINGS: There is normal venous compression and respiratory variation and augmented flow. The visualized common femoral vein, superficial femoral vein, profunda femoral vein, popliteal vein, and the mid calf posterior tibial and peroneal veins shows no evidence of deep venous thrombosis. US/US venous duplex LE LT IMPRESSION: No DVT demonstrated in the left lower extremity.
== END 2023-06-28 15:20 | disposition home or self-care (01) ==
LOC: HO.HMGCX 15:19
PROVIDERS: PCP Nurse Practitioner Family; Visit Provider Nurse Practitioner Family
DX: R60.0 Localized edema (principal)
CPT/HCPCS: 93971

== ENCOUNTER 2023-08-14 08:23 | Outpatient (REF) | payer MEDICARE, SELFPAY ==
[2023-08-14 10:24] LABS: MANUAL DIFF FLAG NO
[2023-08-14 10:39] LABS: Basophils Percent Auto 0.6 % (0-2); Eosinophils Absolute Auto 0.2 X10*3/uL (0.0-0.4); Eosinophils Percent Auto 4.5 % (0-4); Hematocrit 44.3 % (42.0-52.0); Hemoglobin 15.3 g/dl (14.0-18.0); Lymphocytes Absolute Auto 1.7 X10*3/uL (1.2-4.9); Lymphocytes Percent Auto 34.4 % (20-40); Mean Corpuscular HGB Conc 34.5 g/dl (31.0-36.0); Mean Corpuscular Hemoglobin 31.4 pg (27.0-33.0); Mean Platelet Volume 11.9 fL (9.4-12.4); Monocytes Absolute Auto 0.5 X10*3/uL (0.1-1.2); Neutrophils Absolute Auto 2.5 x10*3/uL (2.0-8.3); Neutrophils Percent Auto 50.5 % (45-73); Platelet Count 163 X10*3/uL (160-400); Red Blood Count 4.87 X10*6/uL (4.60-5.80); Red Cell Distribution Width 13.7 % (11.0-16.0); White Blood Count 4.9 X10*3/uL (4.8-10.8)
[2023-08-14 10:44] LABS: Appearance Urine Clear; Color Urine Yellow; Glucose Urine UA Negative (Negative); Leukocyte Esterase Urine Negative (Negative); Nitrite Urine Negative (Negative); PH 7.5 (5.0-9.0); Urine Blood Negative (Negative); Urine Ketones Negative (Negative); Urine Protein Negative (Neg-Trace)
[2023-08-14 11:13] LABS: Alanine Aminotransferase 27 U/L (0-40); Albumin Level 4.1 g/dL (3.5-5.0); Alkaline Phosphatase 100 U/L (39-117); Anion Gap 14 (12-20); Aspartate Amino Transferase 19 U/L (5-37); Bilirubin Total 0.6 mg/dL (0.0-1.0); Blood Urea Nitrogen 10 mg/dL (9-16); Calcium 9.2 mg/dL (8.4-10.2); Carbon Dioxide 25 mmol/L (22-29); Chloride 104 mmol/L (96-108); Cholesterol 189 mg/dL (<200); Estimated Glomerular Filt Rate > 60; Glucose Fasting 125 mg/dL (60-99); HDL Cholesterol 41 mg/dL (>40); LDL Cholesterol Calculated 119 mg/dL (<100); Potassium 3.3 mmol/L (3.3-5.1); Sodium 140 mmol/L (135-145); Total Protein 6.8 g/dL (6.5-8.0); Triglycerides 145 mg/dL (<150)
[2023-08-14 11:17] LABS: TSH reflex Free T4 0.03 uIU/mL (0.32-4.0)
[2023-08-14 12:59] LABS: Free T4 (Free Thyroxine) 1.02 ng/dL (0.71-1.85)
== END 2023-08-14 08:24 | disposition home or self-care (01) ==
LOC: HO.HMGCLDS 08:23
PROVIDERS: PCP Nurse Practitioner Family; Visit Provider Nurse Practitioner Family
DX: E11.9 Type 2 diabetes mellitus without complications (principal); R79.89 Other specified abnormal findings of blood chemistry
CPT/HCPCS: 36415; 80053; 80061; 81003; 84439; 84443; 85025

== ENCOUNTER 2023-08-22 14:03 | Outpatient (REF) | payer MEDICARE, SELFPAY ==
--- NOTE | ~2023-08-22 | US_ITS ---
EXAMINATION: US THYROID CLINICAL INFORMATION: Other specified abnormal findings of blood chemistry. Low TSH. COMPARISON: None available. TECHNIQUE: Linear transducer gauthier-scale and color Doppler examination with attention to the region of the thyroid. FINDINGS: SIZE: Measurements of the thyroid lobes and nodules are given in sagittal, anteroposterior and transverse dimensions respectively. Right Thyroid Lobe: 5.7 x 2.1 x 1.6 cm, volume 10.0 mL. Parenchyma: The gland echotexture is heterogeneous. Thyroid vascularity is normal. Left Thyroid Lobe: 5.8 x 2.0 x 1.7 cm, volume 10.3 mL. Parenchyma: The gland echotexture is heterogeneous. Thyroid vascularity is normal. Isthmus: 0.5 cm in maximum AP dimension. No focal thyroid nodule is seen. NODES: No lymphadenopathy is seen in the tissue surrounding the thyroid gland. US/US thyroid IMPRESSION: Enlarged heterogeneous thyroid gland without a focal nodule. No further follow-up is recommended. ACR TI-RADS RECOMMENDATION REFERENCE: Ultrasound-guided fine-needle aspiration, followup ultrasound, no further follow up. * TR1 (0 point) and TR2 (2 points): No FNA or follow up. * TR3 (3 points): FNA if more than or equal to 2.5 cm in maximum dimension, followup ultrasound in 1, 3 and 5 years if 1.5 to 2.4 cm in maximum dimension. * TR4 (4-6 points): FNA if more than or equal to 1.5 cm in maximum dimension, followup ultrasound in 1, 2, 3 and 5 years if 1 to 1.4 cm in maximum dimension. * TR5 (more than or equal to 7 points): FNA if more than or equal to 1 cm in maximum dimension, followup ultrasound every year for 5 years if 0.5 to 0.9 cm in maximum dimension. * TR3, TR4 or TR5 nodules that are below the size threshold for followup receive no follow up.
== END 2023-08-22 14:04 | disposition home or self-care (01) ==
LOC: HO.HMGCX 14:03
PROVIDERS: PCP Nurse Practitioner Family; Visit Provider Nurse Practitioner Family
DX: R79.89 Other specified abnormal findings of blood chemistry (principal)
CPT/HCPCS: 76536

== ENCOUNTER 2023-09-26 12:50 | Outpatient (REF) | payer MEDICARE, SELFPAY ==
[2023-09-26 16:51] LABS: Free T4 (Free Thyroxine) 0.93 ng/dL (0.71-1.85); TSH reflex Free T4 0.51 uIU/mL (0.32-4.0); Thyroid Stimulating Hormone 0.51 uIU/mL (0.32-4.0)
[2023-09-28 02:48] LABS: Triiodothyronine T3 Total 102 ng/dL (76-181)
== END 2023-09-26 12:51 | disposition home or self-care (01) ==
LOC: HO.HMGCLDS 12:50
PROVIDERS: PCP Nurse Practitioner Family; Visit Provider Nurse Practitioner Adult Health
DX: R79.89 Other specified abnormal findings of blood chemistry (principal); E05.90 Thyrotoxicosis, unspecified without thyrotoxic crisis or storm
CPT/HCPCS: 36415; 84439; 84443; 84480; 99202

== ENCOUNTER 2023-09-26 12:50 | Outpatient (AMB) | payer MEDICARE, SELFPAY ==
[2023-09-26 12:52] VITALS: BP 116/62; PULSE 75; BMI 35.3
--- NOTE | 2023-09-26 12:52 | MHC.OFFVIS ---
Vital Signs 09/26/23 12:52 Height 5 ft 11 in Weight 253 lb 1.451 oz BMI 35.3 BP 116/62 Blood Pressure Location Rt brachial Position Sitting Pulse 75 Pulse Source Pulse Oximeter Intake Visit Reasons: Hyperthyroidism Intake Note: New patient present today for Hyperthyroidism, referred by PCP. 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 A recent thyroid ultrasound show heterogeneous enlarged thyroid. He has no prior history of thyroid function test abnormalities. He complaints of some fatigue which has not changed recently. He denies palpitations, heart racing, heat, cold intolerance. His medical record indicates history of irregular heart beat but does denie this. He denies thyroid pain. He has not had any recent viral illness, steroid usage or history of taking amiodarone. [facility] Medical History Irregular heart rhythm Sleep apnea Mild cognitive impairment Short-term memory loss Dyslipidemia ABMD (anterior basement membrane dystrophy) DDD (degenerative disc disease) GERD (gastroesophageal reflux disease) Anxiety and depression Surgical History Hx of colonoscopy H/O transurethral resection of prostate History of lumbar surgery History of hernia repair Family History Father No problems noted. Mother No problems noted. Social History Housing: House Alcohol intake: current Alcohol intake frequency: holidays/special occasions only Patient Tobacco Use Status: Former Tobacco user Years Smoked: Quit in 1984 e-Cigarette/Vaping Use: Never Used Second Hand Smoke Exposure: No Current occupational status: retired Cognitive needs: No Hearing needs: No Vision needs: No Review of Systems Card Reports chest pain Physical Exam Vital Signs: Last Vital Signs Pulse 75 09/26/23 12:52 BP 116/62 09/26/23 12:52 BMI result Body Mass Index 35.3 Const General: healthy appearing and no acute distress Nutritional Appearance: overweight Orientation/consciousness: oriented to person, oriented to place and oriented to time Eyes Other: no exothalamus Neck Other: slight enlargement of thyroid gland without nodule Neck: Yes no lymphadenopathy Resp Effort & Inspection: normal respiratory effort and symmetric chest movement Auscultation: clear to auscultation bilaterally Cardio Jugular venous distension: no JVD Rate: regular rate Rhythm: regular rhythm Heart sounds: S1 normal heart sound present and S2 normal heart sound present Neuro Other: brachial/patellar reflexes nl General: oriented to person, oriented to place and oriented to time Gait exam (Neuro): Normal gait present Results Reviewed Results Reviewed: Laboratory Tests 11/29/22 08/14/23 13:32 08:40 WBC 4.9 Fasting Glucose 125 H Hgb A1c (Clinic) 5.4 TSH 0.03 L Free T4 1.02 [facility] [address] [place] [address] Ultrasound Report Signed Patient: Colton Allen MR#: [id number] : 1950 [facility] Date [facility] Service: 08/22/23 Procedure(s): US thyroid EXAMINATION: US THYROID CLINICAL INFORMATION: Other specified abnormal findings of blood chemistry. Low TSH. COMPARISON: None available. TECHNIQUE: Linear transducer gauthier-scale and color Doppler examination with attention to the region of the thyroid. FINDINGS: SIZE: Measurements of the thyroid lobes and nodules are given in sagittal, anteroposterior and transverse dimensions respectively. Right Thyroid Lobe: 5.7 x 2.1 x 1.6 cm, volume 10.0 mL. Parenchyma: The gland echotexture is heterogeneous. Thyroid vascularity is normal. Left Thyroid Lobe: 5.8 x 2.0 x 1.7 cm, volume 10.3 mL. Parenchyma: The gland echotexture is heterogeneous. Thyroid vascularity is normal. Isthmus: 0.5 cm in maximum AP dimension. No focal thyroid nodule is seen. NODES: No lymphadenopathy is seen in the tissue surrounding the thyroid gland. US/US thyroid IMPRESSION: Enlarged heterogeneous thyroid gland without a focal nodule. No further follow-up is recommended. Assessment & Plan Assessment & Plan (1) Low TSH level: Comment: 73 year old male with recent low tsh with normal free T4 and slight goiter on thyroid ultrasound. I discussed with the patient the possible reasons for the thyroid test abnormalities including recent viral illness or new onset auto immune thyroid disease. He will have repeat labs done today with addition of T3 to rule out T3 thyrotoxicosis and tsi to r/o auto immune disease. We discussed the possible treatments of hyperthyroidism including the use of tapazole and potential side effects. Radioactive iodine was briefly discussed which is not clinically warranted. If repeat TSH remains low a potential benefit of initiating treatment would be the prevention of atrial fibrillation. Code(s): R79.89 - Other specified abnormal findings of blood chemistry Category: Medical Plan I answered all patient questions. We in depth reviewed the differences between hypo and hypothyroidism, Orders: Orders TSH reflex Free T4 Today R79.89 - Other specified abnormal findings of blood chemistry Free T4 (Free Thyroxine) Today R79.89 - Other specified abnormal findings of blood chemistry Triiodothyronine T3 Total Today R79.89 - Other specified abnormal findings of blood chemistry Thyroid Stimulating Hormone Today R79.89 - Other specified abnormal findings of blood chemistry Coding Level of Care Code New Pt Level 3 (48952) Diagnoses Low TSH level R79.89 Time Spent (min) 30 Comment 10 minutes chart review 20 minutes face to face with patient
== END 2023-09-26 13:45 | disposition home or self-care (01) ==
PROVIDERS: PCP Nurse Practitioner Family; Visit Provider Nurse Practitioner Adult Health
DX: R79.89 Other specified abnormal findings of blood chemistry (principal)
CPT/HCPCS: 99203

== ENCOUNTER 2023-10-29 11:49 | Outpatient (REF) | payer MEDICARE, SELFPAY ==
[2023-10-29 14:09] LABS: TSH reflex Free T4 0.83 uIU/mL (0.32-4.0)
[2023-10-30 10:48] LABS: Thyroid Peroxidase Antibodies 3 IU/mL (<9)
[2023-11-02 23:18] LABS: Thyrotropin Receptor Antibody <1.00 IU/L (<=2.00)
== END 2023-10-29 11:50 | disposition home or self-care (01) ==
LOC: HO.HMGCLDS 11:49
PROVIDERS: PCP Nurse Practitioner Family; Visit Provider Nurse Practitioner Family
DX: R79.89 Other specified abnormal findings of blood chemistry (principal)
CPT/HCPCS: 36415; 83520; 84443; 84481; 86376

== ENCOUNTER 2023-10-30 13:06 | Outpatient (AMB) | payer MEDICARE, SELFPAY ==
--- NOTE | 2023-10-30 13:11 | MHC.PC.OV ---
Vital Signs 10/30/23 13:14 Height 5 ft 11 in Weight 250 lb BMI 34.9 BP 130/90 H Blood Pressure Location Rt brachial Position Sitting Pulse 77 Pulse Source Pulse Oximeter Pulse Oximetry (%) 98 Oxygen Delivery Method Room Air Intake Visit Reasons: 3-4M F/U Intake Note: Patient here for Diabetes f/u. Allergies peanut [PEANUT] Allergy (Intermediate, Verified 10/30/23 13:19) ITCHING/HIVES naproxen Adverse Reaction (Mild, Verified 10/30/23 13:19) Hives ELASTIC Allergy (Mild, Uncoded 10/30/23 13:19) ITCHING Medication List - Last Reconciled 10/30/23 by WING Chong-HUNTER atorvastatin 20 mg PO DAILY buspirone 7.5 mg PO BID 90 days compr.stocking,knee,long,x-lrg daily use [compress stockings 4 pairs ] [CPAP with tubing and mask place mask as directed on face prior to falling asleep with settings prescribed by [facility] ] escitalopram oxalate 20 mg PO BEDTIME Flomax (tamsulosin) 0.4 mg PO BEDTIME 90 days NS fluocinonide 0.05% 1 appl topical BID-QID PRN lancets (OneTouch Delica Plus Lancet) test blood sugar twice a day memantine 10 mg PO BID 30 days omeprazole 20 mg PO DAILY OneTouch Delica Lancets (lancets) Use to check blood sugar twice daily, once fasting and another random during the day NS OneTouch Ultra Test (blood sugar diagnostic) Use to check blood sugar twice daily, once fasting and another random during the day NS OneTouch Ultra2 Meter (blood-glucose meter) Use to check blood sugar twice daily, once fasting and another random during the day NS tadalafil 10 mg PO DAILY 90 days triamterene-hydrochlorothiazid 37.5-25 mg 1 tab PO QAM 90 days Tobacco use date assessed: 06/28/23 Fall risk assessment: No Falls in past year Last assessed Fall Risk: 10/30/23 Dental Screening Dental Screen Date: 06/28/23 HPI 3-4M F/U HPI Details diabetes: eye exam is up to date. Pt is currently on a statin. 5.9 A1c today. Denies any neuropathy. Memory: reports increased short term memory loss, will increase memantine to 10mg bid from 5mg bid. [facility] Medical History Irregular heart rhythm Sleep apnea Mild cognitive impairment Short-term memory loss Dyslipidemia ABMD (anterior basement membrane dystrophy) DDD (degenerative disc disease) GERD (gastroesophageal reflux disease) Anxiety and depression Surgical History Hx of colonoscopy H/O transurethral resection of prostate History of lumbar surgery History of hernia repair Family History Father No problems noted. Mother No problems noted. Social History Housing: House Alcohol intake: current Alcohol intake frequency: holidays/special occasions only Patient Tobacco Use Status: Former Tobacco user Years Smoked: Quit in 1984 e-Cigarette/Vaping Use: Never Used Second Hand Smoke Exposure: No Current occupational status: retired Cognitive needs: No Hearing needs: No Vision needs: No Questionnaire PHQ-9 Over the last 2 weeks, how often have you been bothered by any of the following problems? 1. Little interest or pleasure in doing things: several days 2. Feeling down, depressed, or hopeless: more than half the days 3. Trouble falling or staying asleep, or sleeping too much: not at all 4. Feeling tired or having little energy: several days 5. Poor appetite or overeating: not at all 6. Feeling bad about yourself - or that you are a failure or have let yourself or your family down: several days 7. Trouble concentrating on things, such as reading the newspaper or watching television: several days 8. Moving or speaking so slowly that other people could have noticed. Or the opposite - being so fidgety or restless that you have been moving around a lot more than usual: not at all 9. Thoughts that you would be better off or of hurting yourself in some way: not at all Total score: 6 Depression Screening Interpretation: Negative Depression Screening Done: Yes 52866 - PHQ-9 Billing: Yes Source: Developed by Drs. Parish L. DomoChandrika hathaway, Tod Keen and colleagues, with an educational florina from [employer]. Thrive Questionnaire Date Thrive assessed: 06/28/23 I am a: Patient What is your living situation today?: I have a steady place to live Within the past 12 months, did the food you bought not last and you didn't have the money to get more?: Sometimes True Within the past 12 months, did you worry whether your food would run out before you got money to buy more?: Sometimes True Do you have trouble paying for medicines?: No Do you have trouble getting transportation to medical appointments?: No Do you have trouble paying your heating and electricity bill?: No Do you have trouble taking care of your child, family member or friend?: No Do you have trouble with day-to-day activities such as bathing, preparing meals, shopping, managing finances, etc.?: No Are you currently unemployed and looking for a job?: I choose not to answer this question Are you interested in more education?: No Please select the resources that you would like help with: Care for elder or disabled Currently or been in a relationship where the following occur: No concerns reported THRIVE Score: 2 AUDIT C Alcohol Use Questionnaire (AUDIT-C) 1. How often do you have a drink containing alcohol?: Monthly or less 2. How many drinks containing alcohol do you have on a typical day when you are drinking?: 1 or 2 3. How often do you have six or more drinks on one occasion?: Less than monthly Total Score: 2 Score Reviewed/Action Taken: Yes NIA-7 AMB Questionnaire NIA-7 Date NIA - 7 assessed: 06/28/23 Feeling nervous, anxious, or on edge: 1 = Several days Not being able to stop or control worryin = Several days Worrying too much about different things: 1 = Several days Trouble relaxin = More than half the days Being so restless that it is hard to sit still: 0 = Not at all Becoming easily annoyed or irritable: 1 = Several days Feeling afraid as if something awful might happen: 1 = Several days Total NIA-7 score (0-4 normal; 5-9 mild; 10-14 moderate; 15-21 severe): 7 Source: Developed by Chandrika Juan Kurt Kroenke and colleagues, with an educational florina from [employer]. NIA-7 Assessment Billing NIA-7 Assessment Tool: NIA-7 Assessment 72783 Physical exam (Primary Care) Vital Signs: Last Vital Signs Pulse 77 10/30/23 13:14 BP 130/90 H 10/30/23 13:14 Pulse Ox 98 10/30/23 13:14 Oxygen Delivery Method Room Air 10/30/23 13:14 BMI result Body Mass Index 34.9 Tobacco/Smoking Status: Tobacco use Status Tobacco use date assessed 06/28/23 10/30/23 13:12 Patient Tobacco Use Status Former Tobacco user 10/30/23 13:12 Tobacco use type 09/25/23 14:01 e-Cigarette/Vaping Use Never Used 10/30/23 13:12 Depression Screening Interpretation: Negative Thrive Assessment: Date of Thrive Assessment Date Thrive assessed 06/28/23 10/30/23 13:12 Currently or been in a relationship where the following occur: No concerns reported Const General: cooperative Resp Effort & Inspection: normal respiratory effort Auscultation: clear to auscultation bilaterally Cardio Rate: regular rate Rhythm: regular rhythm Heart sounds: S1 normal heart sound present and S2 normal heart sound present Psych Appearance: grossly normal Mental Status: mental status grossly normal Speech and movement: Normal speech and movement present Affect: normal affect Attitude: cooperative Thought process: Normal thought process present Thought content: Normal thought content present Results AMB Hemoglobin A1c AMB Hemoglobin A1c 5.9 % Last Edit by ROSE Mcgowan on 10/30/23 13:44 Assessment and Plan Assessment & Plan (1) Diabetes: Code(s): E11.9 - Type 2 diabetes mellitus without complications Plan: controlled currently (2) Memory loss: Code(s): R41.3 - Other amnesia Plan: increasing memantine from 5mg bid to 10mg bid Orders: Orders AMB Hemoglobin A1c Today E11.9 - Type 2 diabetes mellitus without complications, Z13.9 - Encounter for screening, unspecified Complete Blood Count Auto Diff Today E11.9 - Type 2 diabetes mellitus without complications Lipid Panel Today E11.9 - Type 2 diabetes mellitus without complications Comprehensive [place]. Panel Fast Today E11.9 - Type 2 diabetes mellitus without complications TSH reflex Free T4 Today E11.9 - Type 2 diabetes mellitus without complications UA CC w/rflx Micro + Cult Today E11.9 - Type 2 diabetes mellitus without complications Medications: Changed From memantine 5 mg PO BID 180 tabs 1RF To memantine 10 mg PO BID 30 days 60 tabs 1RF Coding Level of Care Code Est Pt Level 3 (19798) Diagnoses Diabetes E11.9 Memory loss R41.3 Additional Codes NIA-7 Assessment Billing - NIA-7 Assessment Tool: NIA-7 Assessment [id number] ([id number])
[2023-10-30 13:14] VITALS: BP 130/90; PULSE 77; O2SAT 98; BMI 34.9
== END 2023-10-30 14:33 | disposition home or self-care (01) ==
PROVIDERS: PCP Nurse Practitioner Family; Visit Provider Nurse Practitioner Family
DX: E11.9 Type 2 diabetes mellitus without complications (principal); R41.3 Other amnesia
CPT/HCPCS: 83036; 99213

== ENCOUNTER 2024-03-04 13:24 | Outpatient (REF) | payer MEDICARE, SELFPAY ==
[2024-03-04 16:22] LABS: MANUAL DIFF FLAG NO
[2024-03-04 16:28] LABS: Basophils Percent Auto 0.8 % (0-2); Eosinophils Absolute Auto 0.2 X10*3/uL (0.0-0.4); Eosinophils Percent Auto 4.1 % (0-4); Hematocrit 44.4 % (42.0-52.0); Hemoglobin 15.5 g/dl (14.0-18.0); Imm Gran Abs Auto 0.01 X10*3/uL (0.00-0.03); Imm Gran Pct Auto 0.2 % (0.0-0.4); Lymphocytes Absolute Auto 1.3 X10*3/uL (1.2-4.9); Lymphocytes Percent Auto 26.5 % (20-40); Mean Corpuscular HGB Conc 34.9 g/dl (31.0-36.0); Mean Corpuscular Hemoglobin 32.2 pg (27.0-33.0); Mean Corpuscular Volume 92.3 fL (80.0-98.0); Mean Platelet Volume 11.1 fL (9.4-12.4); Monocytes Absolute Auto 0.4 X10*3/uL (0.1-1.2); Monocytes Percent Auto 8.8 % (2-11); Neutrophils Absolute Auto 2.9 x10*3/uL (2.0-8.3); Neutrophils Percent Auto 59.6 % (45-73); Platelet Count 186 X10*3/uL (160-400); Red Blood Count 4.81 X10*6/uL (4.60-5.80); Red Cell Distribution Width 13.6 % (11.0-16.0); White Blood Count 4.9 X10*3/uL (4.8-10.8)
[2024-03-04 18:22] LABS: Alanine Aminotransferase 25 U/L (0-40); Albumin Level 4.2 g/dL (3.5-5.0); Alkaline Phosphatase 99 U/L (39-117); Anion Gap 12 (12-20); Aspartate Amino Transferase 21 U/L (5-37); Bilirubin Total 0.7 mg/dL (0.0-1.0); Blood Urea Nitrogen 11 mg/dL (9-16); Calcium 9.2 mg/dL (8.4-10.2); Carbon Dioxide 28 mmol/L (22-29); Chloride 106 mmol/L (96-108); Cholesterol 226 mg/dL (<200); Estimated Glomerular Filt Rate > 60; Glucose Fasting 119 mg/dL (60-99); HDL Cholesterol 50 mg/dL (>40); LDL Cholesterol Calculated 149 mg/dL (<100); Potassium 3.6 mmol/L (3.3-5.1); Sodium 142 mmol/L (135-145); TSH reflex Free T4 0.96 uIU/mL (0.32-4.0); Total Protein 6.9 g/dL (6.5-8.0); Triglycerides 136 mg/dL (<150)
== END 2024-03-04 13:25 | disposition home or self-care (01) ==
LOC: HO.HMGCLDS 13:24
PROVIDERS: PCP Nurse Practitioner Family; Visit Provider Nurse Practitioner Family
DX: E11.9 Type 2 diabetes mellitus without complications (principal)
CPT/HCPCS: 36415; 80053; 80061; 84443; 85025

== ENCOUNTER 2024-03-06 14:51 | Outpatient (AMB) | payer MEDICARE, SELFPAY ==
--- NOTE | 2024-03-06 14:54 | A.OFFPC_ITS ---
Vital Signs 03/06/24 14:56 Height 5 ft 11 in Weight 256 lb 2 oz BMI 35.7 BP 132/86 Blood Pressure Location Rt brachial Position Sitting Pulse 70 Pulse Source Pulse Oximeter Pulse Oximetry (%) 95 Oxygen Delivery Method Room Air Intake Visit Reasons: Diabetes Intake Note: Chief Complaint Concerns about cholesterol management and mild tingling in the right foot. History of Present Illness The patient is a 73-year-old male presenting with concerns regarding hypercholesterolemia and peripheral neuropathy. The patient reports experiencing mild tingling sensations in the right foot, which is associated with longstanding leg numbness attributed to previous nerve weakness from a pinched nerve. These sensations have been noted for some time but have recently drawn more attention. The patient last had an eye exam approximately six months ago and wears new glasses for improved vision. Additionally, the patient has an abdominal diastasis recti with a history of a notable bulge since 2010 that caused minor discomfort. Edema has been noted in association with the leg condition, although the patient denies any new chest pain or acute shortness of breath. There is also mention of occasional breathing difficulty upon exertion, linked to leg weakness. The patient's cholesterol has been managed with fish oil; however, there is a history of not tolerating statins well due to muscle pain. The PSA levels have been elevated in the past, necessitating ongoing monitoring with urological oversight. Social History - Employs conservative lifestyle habits. - Possibly engages in political discourse as a pastime, listening to specific political commentary shows for information. Health Maintenance - Eye exam conducted six months prior; new glasses purchased. - Cholesterol management attempted with statins and fish oil; presently initiating Zetia. Review of Systems - Cardiovascular: Denies new chest pain. - Respiratory: Reports shortness of breath with exertion. - Neurological: Reports tingling in the right foot. Physical Exam - Cardiovascular- Heart sounds normal. - Respiratory- Lungs sound normal. - Neurological- Examination of the feet noted. Results - Labs: Previous elevated PSA levels. - Tests and Diagnostics: Described diastasis recti. Plan - Hypercholesterolemia: Initiate Zetia for cholesterol management, avoiding statins due to past adverse reactions. - Peripheral Neuropathy: Monitor tingling symptoms in the right foot; assess progression. - Diastasis Recti: Continue monitoring bulge and discomfort. - Elevated PSA: Schedule follow-up PSA testing to monitor prostate health and consult with urology if elevated. - Edema: Observe for changes in leg swelling; consider supportive therapies. Patient was informed and verbally consented to the use of an ambient scribe for clinic note documentation during this visit. Discussion Notes I discussed with the patient the management of his cholesterol, emphasizing the switch to Zetia to avoid muscle pain associated with statins. We agreed on monitoring the cholesterol levels within two months to assess effectiveness. I explained the importance of checking PSA levels regularly due to his history of elevation, with a plan to consult Dr. Wolfe if needed. We discussed the mild tingling in his right foot, relating it to peripheral neuropathy, and the patient was advised on signs to watch for that could necessitate further evaluation. I provided reassurance regarding diastasis recti, explaining its commonality and the low risk involved. Patient Instructions - Begin Zetia as prescribed for cholesterol management. - Monitor for any worsening of tingling or numbness in the feet. - Watch for any significant changes in leg edema and report if needed. - Schedule a follow-up appointment for PSA and cholesterol check in approximately two months. - Avoid statins due to previous muscle pain and include in the allergy list. - Continue routine urological follow-up with Dr. Wolfe. - Notify the office of any new or worsening symptoms. Allergies peanut [PEANUT] Allergy (Intermediate, Verified 03/06/24 14:54) ITCHING/HIVES Kjnfrrj-VAY-KeT Reductase Inhibitor Adverse Reaction (Intermediate, Verified 03/06/24 15:33) Muscle Pain naproxen Adverse Reaction (Mild, Verified 03/06/24 14:54) Hives ELASTIC Allergy (Mild, Uncoded 10/30/23 13:19) ITCHING Medication List - Last Reconciled 03/06/24 by DEVIN ChongBC [CPAP with tubing and mask place mask as directed on face prior to falling asleep with settings prescribed by [facility] ] escitalopram oxalate 20 mg PO BEDTIME Flomax (tamsulosin) 0.4 mg PO BEDTIME 90 days NS lancets (OneTouch Delica Plus Lancet) test blood sugar twice a day memantine 10 mg PO BID 30 days omeprazole 20 mg PO DAILY OneTouch Delica Lancets (lancets) Use to check blood sugar twice daily, once fasting and another random during the day NS OneTouch Ultra Test (blood sugar diagnostic) Use to check blood sugar twice daily, once fasting and another random during the day NS OneTouch Ultra2 Meter (blood-glucose meter) Use to check blood sugar twice daily, once fasting and another random during the day NS tadalafil 10 mg PO DAILY 90 days triamterene-hydrochlorothiazid 37.5-25 mg 1 tab PO QAM 90 days Tobacco use date assessed: 03/06/24 Fall risk assessment: No Falls in past year Last assessed Fall Risk: 03/06/24 Dental Screening Dental Screen Date: 03/06/24 Did you have a dental visit in the last 12 months?: Yes Did you have a dental problem in the last 6 months where you did not have access to dental care?: No Was dental information given to patient?: Patient has dentist HPI Diabetes HPI Details Chief Complaint Concerns about cholesterol management and diabetes. History of Present Illness The patient is a 73-year-old male presenting with concerns regarding hyperc holesterolemia and diabetes. Pt does have peripheral neuropathy (bilat). The patient last had an eye exam approximately six months ago and wears new glasses for improved vision. Edema has been noted in association with the leg condition/injury (left), although the patient denies any chest pain or acute shortness of breath. There is also mention of occasional breathing difficulty upon exertion, linked previous LLE injury and obesity. The patient's cholesterol has been managed with fish oil; however, there is a history of not tolerating statins well due to muscle pain. The PSA levels have been elevated in the past, necessitating ongoing monitoring with urological oversight. Pt refuses all vaccinations Social History - Employs conservative lifestyle habits. - Possibly engages in political discours e as a pastime, listening to specific political commentary shows for information. Health Maintenance - Eye exam conducted six months prior; n ew glasses purchased. - Cholesterol management attempted with statins and fish oil; presently initiating Zetia. Review of Systems - Cardiovascular: Denies new chest pain. - Respiratory: Reports shortness of neal th with exertion. - Neurological: Reports tingling in the right foot. Physical Exam sclera-non icteric neck supple - Cardiovascular- Heart sounds normal, s 1, s2 - Respiratory- Lungs sound normal, - Neurological- Examination of the feet noted, intact, with + sensation with monofilament. -edema to lle A+Ox3 Results - Labs: Previous elevated PSA levels, wi ll recheck, microalbumin ordered, choles/ldl up. Plan - Hypercholesterolemia: Initiate Zetia f or cholesterol management, avoiding statins due to past adverse reactions. - Peripheral Neuropathy: Monitor tinglin g symptoms in the right foot; assess progression. - Elevated PSA: Schedule follow-up PSA t esting to monitor prostate health and consult with urology if elevated. - Edema: Observe for changes in leg swel ling; consider supportive therapies. -diabetes: stable with 6.4 a1c Patient was informed and verbally consented to the use of an ambient scribe for clinic note documentation during this visit. Discussion Notes I discussed with the patient the management of his cholesterol, emphasizing the switch to Zetia to avoid muscle pain associated with statins. We agreed on monitoring the cholesterol levels within two months to assess effectiveness. I explained the importance of checking PSA levels regularly due to his history of elevation, with a plan to consult Dr. Wolfe if needed. We discussed the mild tingling in his right foot, relating it to peripheral neuropathy, and the patient was advised on signs to watch for that could necessitate further evaluation. Patient Instructions - Begin Zetia as prescribed for choleste rol management. - Monitor for any worsening of tingling or numbness in the feet. - Watch for any significant changes in l eg edema and report if needed. - Schedule a follow-up appointment for P SA and cholesterol check in approximately two months after starting new med (Ezetimibe). - Avoid statins due to previous muscle p ain and include in the allergy list. - Continue routine urological follow-up with Dr. Wolfe. - Notify the office of any new or worsen ing symptoms. [facility] Medical History Irregular heart rhythm Sleep apnea Mild cognitive impairment Short-term memory loss Dyslipidemia ABMD (anterior basement membrane dystrophy) DDD (degenerative disc disease) GERD (gastroesophageal reflux disease) Anxiety and depression Surgical History Hx of colonoscopy H/O transurethral resection of prostate History of lumbar surgery History of hernia repair Family History Father No problems noted. Mother No problems noted. Social History Housing: House Alcohol intake: current Alcohol intake frequency: holidays/special occasions only Patient Tobacco Use Status: Former Tobacco user Years Smoked: Quit in 1984 e-Cigarette/Vaping Use: Never Used Second Hand Smoke Exposure: No service: No Current occupational status: retired Cognitive needs: No Hearing needs: No Vision needs: No Questionnaire PHQ-9 Over the last 2 weeks, how often have you been bothered by any of the following problems? 1. Little interest or pleasure in doing things: not at all 2. Feeling down, depressed, or hopeless: not at all 3. Trouble falling or staying asleep, or sleeping too much: several days 4. Feeling tired or having little energy: not at all 5. Poor appetite or overeating: not at all 6. Feeling bad about yourself - or that you are a failure or have let yourself or your family down: not at all 7. Trouble concentrating on things, such as reading the newspaper or watching television: not at all 8. Moving or speaking so slowly that other people could have noticed. Or the opposite - being so fidgety or restless that you have been moving around a lot more than usual: not at all 9. Thoughts that you would be better off or of hurting yourself in some way: not at all Total score: 1 Depression Screening Interpretation: Negative Depression Screening Done: Yes 15239 - PHQ-9 Billing: Yes Source: Developed by Drs. Parish Oliveros, Chandrika Bob, Tod Keen and colleagues, with an educational florina from [employer]. Thrive Questionnaire Date Thrive assessed: 03/06/24 I am a: Patient What is your living situation today?: I have a steady place to live Within the past 12 months, did the food you bought not last and you didn't have the money to get more?: Sometimes True Within the past 12 months, did you worry whether your food would run out before you got money to buy more?: Sometimes True Do you have trouble paying for medicines?: No Do you have trouble getting transportation to medical appointments?: No Do you have trouble paying your heating and electricity bill?: No Do you have trouble taking care of your child, family member or friend?: No Do you have trouble with day-to-day activities such as bathing, preparing meals, shopping, managing finances, etc.?: No Are you currently unemployed and looking for a job?: I choose not to answer this question Are you interested in more education?: No Please select the resources that you would like help with: Care for elder or disabled Currently or been in a relationship where the following occur: No concerns reported THRIVE Score: 2 AUDIT C Alcohol Use Questionnaire (AUDIT-C) 1. How often do you have a drink containing alcohol?: Monthly or less 2. How many drinks containing alcohol do you have on a typical day when you are drinking?: 1 or 2 3. How often do you have six or more drinks on one occasion?: Less than monthly Total Score: 2 Score Reviewed/Action Taken: Yes NIA-7 AMB Questionnaire NIA-7 Date NIA - 7 assessed: 06/28/23 Source: Developed by Drs. Parish Oliveros, Chandrika Bob, Tod Keen and colleagues, with an educational florina from [employer]. Physical exam (Primary Care) Vital Signs: Last Vital Signs Pulse 70 03/06/24 14:56 BP 132/86 03/06/24 14:56 Pulse Ox 95 03/06/24 14:56 Oxygen Delivery Method Room Air 03/06/24 14:56 BMI result Body Mass Index 35.7 Tobacco/Smoking Status: Tobacco use Status Tobacco use date assessed 03/06/24 03/06/24 14:56 Patient Tobacco Use Status Former Tobacco user 03/06/24 14:56 Tobacco use type 09/25/23 14:01 e-Cigarette/Vaping Use Never Used 03/06/24 14:56 PHQ-9: PHQ-9 Score PHQ-9: Total score 1 03/06/24 15:34 Depression Screening Interpretation: Negative Thrive Assessment: Date of Thrive Assessment Date Thrive assessed 03/06/24 03/06/24 14:56 Currently or been in a relationship where the following occur: No concerns reported Coding Level of Care Code Est Pt Level 3 (25100) Diagnoses Diabetes E11.9 Screening PSA (prostate specific antigen) Z12.5 Dyslipidemia E78.5 Additional Codes PHQ-9 - 24141 - PHQ-9 Billing: Yes ([id number]) Assessment & Plan Assessment & Plan (1) Diabetes: Code(s): E11.9 - Type 2 diabetes mellitus without complications Category: Medical (2) Screening PSA (prostate specific antigen): Code(s): Z12.5 - Encounter for screening for malignant neoplasm of prostate Category: Medical (3) Dyslipidemia: Code(s): E78.5 - Hyperlipidemia, unspecified Category: Medical Plan . Orders: Orders Prostate Specific Antigen Scr Today Z12.5 - Encounter for screening for malignant neoplasm of prostate Comprehensive [place]. Panel Fast Today E78.5 - Hyperlipidemia, unspecified Lipid Panel Today E78.5 - Hyperlipidemia, unspecified Microalbumin, Random (w Creat) Today E11.9 - Type 2 diabetes mellitus without complications Medications: New ezetimibe 10 mg PO DAILY 90 tabs 0RF 90 days
[2024-03-06 14:56] VITALS: BP 132/86; PULSE 70; O2SAT 95; BMI 35.7
== END 2024-03-06 16:38 | disposition home or self-care (01) ==
PROVIDERS: PCP Nurse Practitioner Family; Visit Provider Nurse Practitioner Family
DX: E11.9 Type 2 diabetes mellitus without complications (principal); Z12.5 Encounter for screening for malignant neoplasm of prostate; E78.5 Hyperlipidemia, unspecified

== ENCOUNTER → 2024-03-06 14:51 | Outpatient (BNVA) | payer MEDICARE, SELFPAY | PROVIDERS: PCP Nurse Practitioner Family; Visit Provider Nurse Practitioner Family | DX: E11.9 Type 2 diabetes mellitus without complications (principal); E78.5 Hyperlipidemia, unspecified | CPT/HCPCS: 96127; 99212 ==

== ENCOUNTER → 2024-03-07 08:58 | Outpatient (BNV) | payer MEDICARE, SELFPAY | PROVIDERS: PCP Nurse Practitioner Family; Visit Provider Nurse Practitioner Family | DX: Z13.9 Encounter for screening, unspecified (principal) | CPT/HCPCS: 83036 ==

== ENCOUNTER 2024-06-30 14:53 | Outpatient (AMB) | payer MEDICARE, SELFPAY ==
[2024-06-30 14:58] VITALS: BP 120/76; PULSE 78; O2SAT 95; BMI 35.7
--- NOTE | 2024-06-30 14:58 | A.OFFPC_ITS ---
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: No Accompanied by: Spouse Allergies peanut [PEANUT] Allergy (Intermediate, Verified 06/30/24 15:18) ITCHING/HIVES Ekgjpdp-SOE-OpH Reductase Inhibitor Adverse Reaction (Intermediate, Verified 06/30/24 15:18) Muscle Pain naproxen Adverse Reaction (Mild, Verified 06/30/24 15:18) Hives ELASTIC Allergy (Mild, Uncoded 10/30/23 13:19) ITCHING Tobacco use date assessed: 06/30/24 Fall risk assessment: No Falls in past year Last assessed Fall Risk: 06/30/24 Dental Screening Dental Screen Date: 06/30/24 Did you have a dental visit in the last 12 months?: Yes Did you have a dental problem in the last 6 months where you did not have access to dental care?: No Was dental information given to patient?: Patient has dentist HPI 4m follow up HPI Details Chief Complaint The patient presents for a diabetes follow-up appointment. History of Present Illness The patient is a 73-year-old male presenting with a follow-up for diabetes mellitus. He denies respiratory symptoms such as chest pain or dyspnea but confirms mild peripheral neuropathy in the bilateral lower extremities, observed through monofilament sensation testing, with a slightly diminished response. He also experiences chronic left lower extremity edema, a long-standing issue resultant from an old back injury and a fall through a deck many years ago. Previous examinations have excluded deep vein thrombosis as a contributing factor. The patient has shown some reluctance towards compression device use, though this remains a potential management strategy. His diabetes management appears positive with an HbA1c of 6.1%. Social History Health Maintenance - Regular eye examinations are up to denisse e. - Reinforcement of previous recommendati on for compression stocking use. Review of Systems - Cardiovascular: Denies chest pain. - Respiratory: Denies shortness of breat h. - Neurological: Reports mild neuropathy in bilateral extremities. Physical Exam General: Cooperative, healthy appearing, comfortable, no acute distress and well developed. Obesity noted. Orientation: Patient oriented x3 Limitations: No limitations Head: Normal to inspection Ears: Hearing grossly normal bilaterally Nose: Normal external nose present Face and sinus: Normal facial exam Eyes: Appearance normal, both eyes and all related structures. Eye exam is up to date. Neck: Normal visual inspection and Yes full ROM Respiratory: Normal respiratory effort and able to speak in complete sentences. Clear to auscultation bilaterally Cardiovascular: Regular rate and rhythm. Normal S1 and S2 GI: Normal to inspection. Soft to palpation and nontender Skin: No rashes or lesions noted Neuro: Patient oriented x3. Faint neuropathy reported with bilateral extremities, weak sensation bilaterally with use of monofilament. Extremities: Swelling +1 pitting to left lower extremity. Normal to inspection Results - Labs: Hemoglobin A1c result indicating 6.1%. Plan 1. 1%. Continued adherence to lifestyle and medication regimens is advisable. For peripheral neuropathy, good glycemic control remains essential, and symptoms will be monitored through follow-up. For the left lower extremity edema, the patient is encouraged to continue trying compression stockings to mitigate swelling. Regular monitoring of the edema and any progression of neuropathy is recommended. Addressing obesity through a structured lifestyle intervention should remain a priority to mitigate associated risks.: Discussion Notes I reviewed with the patient the importance of maintaining adequate control of blood glucose to manage diabetes mellitus, emphasizing the favorable A1c result and its implications. I discussed the management of his peripheral neuropathy and the possibility of symptom progression if diabetes control wavers. For the edema in the left lower extremity, we discussed the use of compression stockings, including potential benefits and previous reluctance. Discussion included the available options and their respective merits. I provided enco uragement regarding adherence to dietary and exercise regimes to manage obesity. Follow-up arrangements and the importance of continuing with the eye exams were reiterated. Patient Instructions - Continue current diabetes management r egimen. - Wear compression stockings to manage l ower extremity swelling as tolerated. - Maintain healthy diet and regular phys ical activity to address obesity. - Schedule regular follow-up to monitor glucose control and neuropathy. - Ensure eye exam remains up to date. PFSH Medical History Irregular heart rhythm Sleep apnea Mild cognitive impairment Short-term memory loss Dyslipidemia ABMD (anterior basement membrane dystrophy) DDD (degenerative disc disease) GERD (gastroesophageal reflux disease) Anxiety and depression Surgical History Hx of colonoscopy H/O transurethral resection of prostate History of lumbar surgery History of hernia repair Family History Father No problems noted. Mother No problems noted. Social History Housing: House Alcohol intake: current Alcohol intake frequency: holidays/special occasions only Patient Tobacco Use Status: Former Tobacco user Years Smoked: Quit in 1984 e-Cigarette/Vaping Use: Never Used Second Hand Smoke Exposure: No service: No Current occupational status: retired Cognitive needs: No Hearing needs: No Vision needs: No Questionnaire PHQ-9 Over the last 2 weeks, how often have you been bothered by any of the following problems? 1. Little interest or pleasure in doing things: not at all 2. Feeling down, depressed, or hopeless: not at all 3. Trouble falling or staying asleep, or sleeping too much: several days 4. Feeling tired or having little energy: not at all 5. Poor appetite or overeating: not at all 6. Feeling bad about yourself - or that you are a failure or have let yourself or your family down: not at all 7. Trouble concentrating on things, such as reading the newspaper or watching television: not at all 8. Moving or speaking so slowly that other people could have noticed. Or the opposite - being so fidgety or restless that you have been moving around a lot more than usual: not at all 9. Thoughts that you would be better off or of hurting yourself in some way: not at all Total score: 1 Depression Screening Interpretation: Negative Depression Screening Done: Yes 44795 - PHQ-9 Billing: Yes Source: Developed by Drs. Parish Oliveros, Chandrika Bob, Tod Keen and colleagues, with an educational florina from [employer]. Thrive Questionnaire Date Thrive assessed: 06/30/24 I am a: Patient What is your living situation today?: I have a steady place to live Within the past 12 months, did the food you bought not last and you didn't have the money to get more?: Sometimes True Within the past 12 months, did you worry whether your food would run out before you got money to buy more?: Sometimes True Do you have trouble paying for medicines?: No Do you have trouble getting transportation to medical appointments?: No Do you have trouble paying your heating and electricity bill?: No Do you have trouble taking care of your child, family member or friend?: No Do you have trouble with day-to-day activities such as bathing, preparing meals, shopping, managing finances, etc.?: No Are you currently unemployed and looking for a job?: I choose not to answer this question Are you interested in more education?: No Please select the resources that you would like help with: Care for elder or disabled Currently or been in a relationship where the following occur: No concerns reported THRIVE Score: 2 AUDIT C Alcohol Use Questionnaire (AUDIT-C) 1. How often do you have a drink containing alcohol?: Monthly or less 2. How many drinks containing alcohol do you have on a typical day when you are drinking?: 1 or 2 3. How often do you have six or more drinks on one occasion?: Less than monthly Total Score: 2 Score Reviewed/Action Taken: Yes NIA-7 AMB Questionnaire NIA-7 Date NIA - 7 assessed: 06/30/24 Feeling nervous, anxious, or on edge: 0 = Not at all Not being able to stop or control worryin = Not at all Worrying too much about different things: 0 = Not at all Trouble relaxin = Not at all Being so restless that it is hard to sit still: 0 = Not at all Becoming easily annoyed or irritable: 3 = Nearly every day Feeling afraid as if something awful might happen: 0 = Not at all Total NIA-7 score (0-4 normal; 5-9 mild; 10-14 moderate; 15-21 severe): 3 Source: Developed by Drs. Parish Oliveros, Chandrika Bob, Tod Keen and colleagues, with an educational florina from [employer]. NIA-7 Assessment Billing NIA-7 Assessment Tool: NIA-7 Assessment 45364 Physical exam (Primary Care) Vital Signs: Last Vital Signs Pulse 78 06/30/24 14:58 BP 120/76 06/30/24 14:58 Pulse Ox 95 06/30/24 14:58 BMI result Body Mass Index 35.7 Tobacco/Smoking Status: Tobacco use Status Tobacco use date assessed 06/30/24 06/30/24 15:19 Patient Tobacco Use Status Former Tobacco user 06/30/24 14:58 Tobacco use type 09/25/23 14:01 e-Cigarette/Vaping Use Never Used 06/30/24 14:58 PHQ-9: PHQ-9 Score PHQ-9: Total score 1 06/30/24 15:19 Depression Screening Interpretation: Negative Thrive Assessment: Date of Thrive Assessment Date Thrive assessed 06/30/24 06/30/24 15:19 Currently or been in a relationship where the following occur: No concerns reported Results AMB Hemoglobin A1c AMB Hemoglobin A1c 6.1 % Last Edit by Sang Quigley CMA on 06/30/24 15: 42 Results Reviewed Results Reviewed: Laboratory Last Values Hgb A1c (Clinic) 6.1 % (4.0-6.0) H 06/30/24 15:41 Coding Level of Care Code Est Pt Level 3 (98617) Diagnoses Diabetes E11.9 Additional Codes NIA-7 Assessment Billing - NIA-7 Assessment Tool: NIA-7 Assessment 75126 ([id number]) PHQ-9 - 44874 - PHQ-9 Billing: Yes ([id number]) Assessment & Plan Assessment & Plan (1) Diabetes: Code(s): E11.9 - Type 2 diabetes mellitus without complications Category: Medical Plan . Orders: Orders AMB Hemoglobin A1c Today Z13.9 - Encounter for screening, unspecified
--- OUTSIDE RECORDS SUMMARY | 2024-06-30 17:28 | XMS_ITS | Patient Health Record ---
Author Organization [facility] Address [address] [place] [address] Care Team Providers Care E Commerce Director Name Role Phone CHANCE CLAY Primary Care Provider Shahzad Graham Jr Unavailable [phone] Reason For Referral No Information Medications Medication SIG (Take, Route, Frequency, Duration) Notes Start Date End Date Status Omeprazole 20 MG 1 capsule Orally Onc e a day Active Escitalopram Oxalate 10 MG 1 tablet Oral ly Once a day Active Triamterene-HCTZ 37.5-25 MG 1 tablet in the morning Orally Once a day Active Atorvastatin Calcium 10 MG 1 tablet Oral ly Once a day Active MiraLax (colon prep) 8.3 ounce ((238) grams mixed with Gatorade or Crystal Light orally begin at 5:00 p.m. the day before the procedure for 1 day 02/26/2020 Active Tamsulosin HCl 0.4 MG 1 capsule Orally O nce a day Active Immunizations Vaccine Route Administration Date Status Comme nts Influenza Unknown 02/26/2020 Refused Problems Problem Type SNOMED Code ICD Code Onset Dates Problem Status W/U Status Risk Notes Problem 851693508 Colon cancer screening (Z12.11) Active confirmed Problem [id number] unix consultant current use of diuretic (Z79.899) Active confirmed Plan Of Treatment Future Test Test Name Order Date COLONOSCOPY 10/14/2014 COLONOSCOPY 02/26/2020 Insurance Providers Payer Name Payer Address Payer Phone Subscriber Number Group Number Insured Name Patient Relationship to Insured Coverage Start Date Coverage End Date [employer] [address] [place] [phone] [id number] JAYDENNicho Hoffman RAVI Self - patient is the insured Medical (General) History Medical History History ICD Code colonoscopy 02/12/15, small tubular bob doug, five-year followup 02/02 depression elevated cholesterol gastroesophageal reflux disease lower extremity edema back pain hypertension BPH/elevated PSA. Surgical History Surgery Date(Month/Year) back surgery knee surgery hernia repair
== END 2024-06-30 16:47 | disposition home or self-care (01) ==
LOC: HO.HMCC 14:54
PROVIDERS: PCP Nurse Practitioner Family; Visit Provider Nurse Practitioner Family
DX: Z13.9 Encounter for screening, unspecified (principal); E11.9 Type 2 diabetes mellitus without complications

== ENCOUNTER → 2024-06-30 14:53 | Outpatient (BNVA) | payer MEDICARE, SELFPAY | PROVIDERS: PCP Nurse Practitioner Family; Visit Provider Nurse Practitioner Family | DX: E11.9 Type 2 diabetes mellitus without complications (principal) | CPT/HCPCS: 83036; 96127; 99212 ==

== ENCOUNTER 2024-07-29 13:42 | Outpatient (AMB) | payer MEDICARE, SELFPAY ==
--- NOTE | 2024-07-29 13:52 | A.OFFVIS_ITS ---
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 He is a patient Dr. Powers. He is seen for current urologic conditions - BPH - prior elevated PSA - erectile dysfunction Yearly follow-up Remains on tamsulosin daily PVR 30 cc Using 10-30 mg tadalafil on demand Erectile dysfunction in setting of type 2 diabetes Type 2 diabetes on metformin Other medications include buspirone, escitalopram Medications - 10mg daily - had leg swelling Responded to every other day Lower urinary tract symptoms Good control with tamsulosin Reports occasional hesitancy, occasional nocturia but overall good stream and e ffective emptying No noted side effects Prior prostate intervention - TURP in the past PSA 09/03 0.7, 09/05 0.6 PFSH Medical History Irregular heart rhythm Sleep apnea Mild cognitive impairment Short-term memory loss Dyslipidemia ABMD (anterior basement membrane dystrophy) DDD (degenerative disc disease) GERD (gastroesophageal reflux disease) Anxiety and depression Surgical History Hx of colonoscopy H/O transurethral resection of prostate History of lumbar surgery History of hernia repair Family History Father No problems noted. Mother No problems noted. Social History Housing: House Alcohol intake: current Alcohol intake frequency: holidays/special occasions only Patient Tobacco Use Status: Former Tobacco user Years Smoked: Quit in 1984 e-Cigarette/Vaping Use: Never Used Second Hand Smoke Exposure: No service: No Current occupational status: retired Cognitive needs: No Hearing needs: No Vision needs: No Review of Systems Const Denies chills and Denies fever(s) Card Reports no additional complaints and Denies syncope Resp Denies cough GI Denies abdominal pain and Denies heartburn Reports as per HPI and Denies change in libido Neuro Denies syncope Psych Denies change in libido Endo Denies change in libido Physical Exam Const General: cooperative, healthy appearing, comfortable and no acute distress Orientation/consciousness: patient oriented x3 HEENT Face and sinus: Yes normal facial exam Mouth: moist mucous membranes Neck Neck: Yes normal visual inspection, Yes full ROM and Yes trachea midline Chest Chest palpation & inspection: normal inspection of the chest Resp Effort & Inspection: normal respiratory effort, able to speak in complete sentences and no respiratory distress GI Inspection: Yes normal to inspection Back/Spine/Pelvis Cervical Spine: normal cervical lordosis Thoracic/Lumbar Spine: thoracic and lumbar spine normal to inspection Skin General skin exam: no rashes or lesions noted Neuro General: patient oriented x3, gait normal, tone normal and moves all extremities Extrem General: Yes normal to inspection and Yes capillary refill normal Office Procedures Post Void Residual Post Residual Void Post Void Residual (PVR): 27 [id number]-[id number] Void Residual by ultrasound Assessment & Plan Assessment & Plan (1) BPH w urinary obs/LUTS: Code(s): N40.1 - Benign prostatic hyperplasia with lower urinary tract symptoms; N13.8 - Other obstructive and reflux uropathy Category: Medical (2) Erectile dysfunction associated with type 2 diabetes mellitus: Code(s): E11.69 - Type 2 diabetes mellitus with other specified complication; N52.1 - Erectile dysfunction due to diseases classified elsewhere Category: Medical (3) Elevated PSA: Code(s): R97.20 - Elevated prostate specific antigen [PSA] Category: Medical Plan Refill medications Twelve month follow-up Medications: Refilled Flomax (tamsulosin) 0.4 mg PO BEDTIME 90 days 90 caps 3RF NS Patient Instructions: This note is constructed using voice recognition software. While every effort has been made to ensure accuracy research geneticist errors may have been included. Imaging studies, laboratory and physical exam results were discussed and reviewed in detail. No major barriers to patient understanding were identified. An opportunity to ask questions regarding the treatment plan was provided. All questions were answered. The patient expressed understanding and agreement with the above treatment plan. The patient is aware they should contact our office by phone for worsening of their current condition or the appearance of new urologic symptoms. Compliance is encouraged with any medications and followup testing that is ordered. It is a privilege to participate in the urologic care of your patient. If you have any questions or concerns regarding treatment for the above conditions, or other urologic issues, please do not hesitate to contact me. The office telephone contact is [phone]. Sincerely, Dr Jose Pandya MD, [facility] - Urology Compassionate Specialist Care for the Genitourinary System Coding Level of Care Code Est Pt Level 4 (26401) Diagnoses BPH w urinary obs/LUTS N40.1; N13.8 Erectile dysfunction associated with type 2 diabetes mellitus E11.69; N52.1 Elevated PSA R97.20 CPT Codes Post Residual Void - PVR CPT Code: [id number]-[id number] Void Residual by ultrasound ([id number])
--- OUTSIDE RECORDS SUMMARY | 2024-07-29 16:48 | XMS_ITS | Patient Health Record ---
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 [place] [phone] [id number] JAYDENNicho Hoffman RAVI Self - patient is the insured Medical (General) History Medical History History ICD Code colonoscopy 02/12/15, small tubular bob doug, five-year followup 02/02 depression elevated cholesterol gastroesophageal reflux disease lower extremity edema back pain hypertension BPH/elevated PSA. Surgical History Surgery Date(Month/Year) back surgery knee surgery hernia repair
== END 2024-07-29 14:18 | disposition home or self-care (01) ==
LOC: HO.HUSH 13:42
PROVIDERS: PCP Nurse Practitioner Family; Visit Provider Urology
DX: N40.1 Benign prostatic hyperplasia with lower urinary tract symptoms (principal); N13.8 Other obstructive and reflux uropathy; E11.69 Type 2 diabetes mellitus with other specified complication; N52.1 Erectile dysfunction due to diseases classified elsewhere; R97.20 Elevated prostate specific antigen [PSA]
CPT/HCPCS: 99214

== ENCOUNTER → 2024-07-29 13:42 | Outpatient (BNVA) | payer MEDICARE, SELFPAY | PROVIDERS: PCP Nurse Practitioner Family; Visit Provider Urology | DX: N40.1 Benign prostatic hyperplasia with lower urinary tract symptoms (principal); N13.8 Other obstructive and reflux uropathy; E11.69 Type 2 diabetes mellitus with other specified complication; N52.1 Erectile dysfunction due to diseases classified elsewhere; R97.20 Elevated prostate specific antigen [PSA] | CPT/HCPCS: 51798; 99212 ==

== ENCOUNTER 2024-12-25 11:31 | Outpatient (REF) | payer MEDICARE, SELFPAY ==
[2024-12-25 14:00] LABS: Alanine Aminotransferase 24 U/L (0-40); Albumin Level 4.5 g/dL (3.5-5.0); Alkaline Phosphatase 96 U/L (39-117); Anion Gap 11 (12-20); Aspartate Amino Transferase 27 U/L (5-37); Blood Urea Nitrogen 12 mg/dL (9-16); Calcium 8.9 mg/dL (8.4-10.2); Carbon Dioxide 28 mmol/L (22-29); Chloride 105 mmol/L (96-108); Cholesterol 157 mg/dL (<200); Estimated Glomerular Filt Rate > 60; HDL Cholesterol 46 mg/dL (>40); Potassium 3.4 mmol/L (3.3-5.1); Sodium 141 mmol/L (135-145); Total Protein 7.0 g/dL (6.5-8.0); Triglycerides 113 mg/dL (<150)
--- OUTSIDE RECORDS SUMMARY | 2024-12-25 15:53 | XMS_ITS | Patient Health Record ---
Author Organization [facility] Address [address] [place] [address] Care Team Providers Care Bicycle Fitter Name Role Phone CHANCE CLAY Primary Care Provider Shahzad Graham Jr Unavailable [phone] Reason For Referral No Information Medications Medication [...] Problem Status W/U Status Risk Notes Problem [id number] Colon cancer screening (Z12.11) Active confirmed Problem [id number] penit[facility]iary current use of diuretic (Z79.899) Active confirmed Plan Of Treatment Future Test Test Name Order Date COLONOSCOPY 10/14/2014 COLONOSCOPY 02/26/2020 Insurance Providers Payer Name Payer Address Payer Phone Subscriber Number Group Number Insured Name Patient Relationship to Insured Coverage Start Date Coverage End Date [employer] [address] [place] [phone] [id number] JAYDENNicho Hoffman RAVI Self - patient is the insured Medical (General) History Medical History History ICD Code colonoscopy 02/12/15, small tubular bob doug, five-year followup 02/02 depression elevated cholesterol gastroesophageal reflux disease lower extremity edema back pain hypertension BPH/elevated PSA. Surgical History Surgery Date(Month/Year) back surgery knee surgery hernia repair
[2024-12-25 17:18] LABS: Appearance Urine Clear; Glucose Urine UA Negative (Negative); PH 7.0 (5.0-9.0); Specific Gravity - Urine 1.015 (1.005-1.025)
== END 2024-12-25 11:32 | disposition home or self-care (01) ==
LOC: HO.HMGCLDS 11:31
PROVIDERS: PCP Nurse Practitioner Family; Visit Provider Nurse Practitioner Family
DX: E11.9 Type 2 diabetes mellitus without complications (principal); E78.5 Hyperlipidemia, unspecified; Z12.5 Encounter for screening for malignant neoplasm of prostate
CPT/HCPCS: 36415; 80053; 80061; 81003; 82043; 82570; 84153

== ENCOUNTER 2025-03-16 15:02 | Outpatient (AMB) | payer MEDICARE, SELFPAY ==
[2025-03-16 15:09] VITALS: BP 120/70; PULSE 76; O2SAT 96; BMI 35.8
--- NOTE | 2025-03-16 15:09 | MHC.PC.OV ---
Vital Signs 03/16/25 15:09 Height 5 ft 11 in Weight 257 lb BMI 35.8 BP 120/70 Blood Pressure Location Lt brachial Position Sitting Pulse 76 Pulse Source Pulse Oximeter Pulse Oximetry (%) 96 Oxygen Delivery Method Room Air Intake Visit Reasons: Annual PE Allergies peanut (PEANUT) Allergy (Intermediate, Verified 03/16/25 15:10) ITCHING/HIVES Stlvykb-TIC-VtX Reductase Inhibitor Adverse Reaction (Intermediate, Verified 03/16/25 15:10) Muscle Pain naproxen Adverse Reaction (Mild, Verified 03/16/25 15:10) Hives ELASTIC Allergy (Mild, Uncoded 07/29/24 13:53) ITCHING Medication List - Last Reconciled 03/16/25 by WING Chong-BC [CPAP with tubing and mask place mask as directed on face prior to falling asleep with settings prescribed by [facility] ] escitalopram oxalate 20 mg PO BEDTIME ezetimibe 10 mg PO DAILY 90 days lancets (OneTouch Delica Plus Lancet) test blood sugar twice a day memantine 10 mg PO BID omeprazole 20 mg PO DAILY OneTouch Delica Lancets (lancets) Use to check blood sugar twice daily, once fasting and another random during the day NS OneTouch Ultra Test (blood sugar diagnostic) Use to check blood sugar twice daily, once fasting and another random during the day NS OneTouch Ultra2 Meter (blood-glucose meter) Use to check blood sugar twice daily, once fasting and another random during the day NS tadalafil 10 mg PO DAILY 90 days tamsulosin 0.4 mg PO BEDTIME 90 days triamterene-hydrochlorothiazid 37.5-25 mg 1 tab PO QAM 90 days Tobacco use date assessed: 06/30/24 Fall risk assessment: No Falls in past year Last assessed Fall Risk: 03/16/25 Dental Screening Dental Screen Date: 06/30/24 HPI Annual PE HPI Details History of Present Illness The patient is a 74-year-old individual presenting for a physical exam. The patient has well-controlled diabetes with an A1C in the 5s and denies any neuropathy. The patient is obese and experiences +1 pitting edema, which is left greater than right. The edema improves with leg elevation or the use of low compression socks. The patient is asymptomatic, denying any chest pain or increased shortness of breath, and is able to perform errands without any issues. The patient is due for a colon screening and is aware that labs need to be done. Health Maintenance - The patient is due for a colon screening and will be referred to a s iron worker. - The patient is due for labs and is aware of the need to have them done in the near future. Social History - The patient is able to do errands without any increase in chest pain. Review of Systems - Neurological: Denies neuropathy. - Cardiovascular: Denies chest pain. - Respiratory: Denies increased shortness of breath. -denies blood in stool, fevers, chills, urinary issues. Physical Exam General: Cooperative, healthy appearing, comfortable, no acute distress and well developed, but obese Orientation: Patient oriented x3 Limitations: No limitations Head: Normal to inspection Ears: Hearing grossly normal bilaterally Nose: Normal external nose present Face and sinus: Normal facial exam Eyes: Appearance normal, both eyes and all related structures Neck: Normal visual inspection and Yes full ROM Respiratory: Normal respiratory effort and able to speak in complete sentences. Clear to auscultation bilaterally Cardiovascular: Regular rate and rhythm. Normal S1 and S2 GI: Normal to inspection. Soft to palpation and nontender Skin: No rashes or lesions noted Neuro: Patient oriented x3 Extremities: Positive dorsalis pedis pulses bilaterally, plus one pitting edema, left greater than right, improved with leg elevation or compression devices Results - Labs: A1c is in the 5s. - Tests and Diagnostics: EKG showed a first-degree block and inferior inverted T waves. Plan 1. Well-Controlled Diabetes The patient's diabetes is well-controlled with an A1c in the 5s. A foot exam revealed positive sensation with monofilament and positive dorsalis pedis pulses bilaterally. The patient needs to follow up for labs in the near future. 2. Pitting Edema The patient was noted to have +1 pitting edema, left greater than right, which improves with leg elevation and compression socks. The patient was educated on keeping legs elevated and continuing the use of compression stockings if tolerated. 3. Abnormal Ekg An EKG revealed a first-degree AV block and inferior inverted T waves. Despite these findings, the patient remains completely asymptomatic, denying any chest pain or shortness of breath. An echocardiogram and a stress test will be ordered for further evaluation. 4. Preventative Care The patient is due for a colon screening, and a referral will be made to the patient's gastroenterology provider. The patient is also due for labs and is aware of the need to complete them. Discussion Notes I educated the patient on managing the lower extremity edema by keeping legs elevated and using compression stockings if they can be utilized without discomfort. I discussed the EKG findings of a first-degree block and inverted T waves, and although the patient is asymptomatic, I will be ordering an echo and a stress test to investigate further. I also informed the patient that a referral will be made to a s iron worker for a colon screening, as it is due. We reviewed that labs are due and need to be completed in the near future. Patient Instructions - Keep your legs elevated when you are sitting or lying down to help with the swelling. - You may use low compression socks to help with the swelling in your legs if they are not too uncomfortable. - We will order an echocardiogram (an ultrasound of your heart) and a stress test for you. - We will refer you to your gastro provider for a colon screening. - Please go to the lab to get your blood work done. [facility] Medical History Irregular heart rhythm Sleep apnea Mild cognitive impairment Short-term memory loss Dyslipidemia ABMD (anterior basement membrane dystrophy) DDD (degenerative disc disease) GERD (gastroesophageal reflux disease) Anxiety and depression Surgical History Hx of colonoscopy H/O transurethral resection of prostate History of lumbar surgery History of hernia repair Family History Father No problems noted. Mother No problems noted. Social History Housing: House Alcohol intake: current Alcohol intake frequency: holidays/special occasions only Patient Tobacco Use Status: Former Tobacco user Years Smoked: Quit in 1984 e-Cigarette/Vaping Use: Never Used Second Hand Smoke Exposure: No service: No Current occupational status: retired Cognitive needs: No Hearing needs: No Vision needs: No Questionnaire Thrive Questionnaire Date Thrive assessed: 03/16/25 NIA-7 AMB Questionnaire NIA-7 Date NIA - 7 assessed: 06/30/24 Source: Developed by Drs. Parish Oliveros, Chandrika Bob, Tod Keen and colleagues, with an educational florina from [employer]. Physical exam (Primary Care) Vital Signs: Last Vital Signs Pulse 76 03/16/25 15:09 BP 120/70 03/16/25 15:09 Pulse Ox 96 03/16/25 15:09 Oxygen Delivery Method Room Air 03/16/25 15:09 BMI result Body Mass Index 35.8 Tobacco/Smoking Status: Tobacco use Status Tobacco use date assessed 06/30/24 03/16/25 15:10 Patient Tobacco Use Status Former Tobacco user 03/16/25 15:10 Tobacco use type 09/25/23 14:01 e-Cigarette/Vaping Use Never Used 03/16/25 15:10 Thrive Assessment: Date of Thrive Assessment Date Thrive assessed 03/16/25 03/16/25 15:10 Office Procedures EKG [id number], Complete Results AMB Hemoglobin A1c AMB Hemoglobin A1c 5.8 % Last Edit by Sang Quigley CMA on 03/16/25 15:38 Results Reviewed Results Reviewed: Laboratory Last Values Hgb A1c (Clinic) 5.8 % (4.0-6.0) 03/16/25 15:29 Coding Level of Care Code Est Pt Level 3 (72292) Est Pt Prev Care >65y(48878) Diagnoses Screening for colon cancer Z12.11 Abnormal EKG R94.31 Encounter for routine adult physical exam with abnormal findings Z00. Diabetes E11.9 CPT Codes EKG - CPT: 25095-[id number], Complete ([id number]) Assessment & Plan Assessment & Plan (1) Screening for colon cancer: Code(s): Z12.11 - Encounter for screening for malignant neoplasm of colon Category: Medical (2) Abnormal EKG: Code(s): R94.31 - Abnormal electrocardiogram [ECG] [EKG] Category: Medical (3) Encounter for routine adult physical exam with abnormal findings: Code(s): Z00.01 - Encounter for general adult medical examination with abnormal findings Category: Medical (4) Diabetes: Code(s): E11.9 - Type 2 diabetes mellitus without complications Category: Medical Plan . Orders: Orders CA echo transthoracic complete Today R94.31 - Abnormal electrocardiogram [ECG] [EKG] CA stress test Today R94.31 - Abnormal electrocardiogram [ECG] [EKG] AMB Hemoglobin A1c Today Z13.9 - Encounter for screening, unspecified NM cardiolite stress test Today R94.31 - Abnormal electrocardiogram [ECG] [EKG] Referrals Gastroenterology Referral Z12.11 - Encounter for screening for malignant neoplasm of colon
== END 2025-03-16 17:02 | disposition home or self-care (01) ==
LOC: HO.HMCC 15:03
PROVIDERS: PCP Nurse Practitioner Family; Visit Provider Nurse Practitioner Family
DX: Z12.11 Encounter for screening for malignant neoplasm of colon (principal); R94.31 Abnormal electrocardiogram [ECG] [EKG]; Z00.01 Encounter for general adult medical examination with abnormal findings; E11.9 Type 2 diabetes mellitus without complications; Z13.9 Encounter for screening, unspecified

== ENCOUNTER → 2025-03-16 15:02 | Outpatient (BNVA) | payer MEDICARE, SELFPAY | PROVIDERS: PCP Nurse Practitioner Family; Visit Provider Nurse Practitioner Family | DX: Z00.01 Encounter for general adult medical examination with abnormal findings (principal); E11.9 Type 2 diabetes mellitus without complications; E66.9 Obesity, unspecified; R06.9 Unspecified abnormalities of breathing; R93.1 Abnormal findings on diagnostic imaging of heart and coronary circulation; R94.31 Abnormal electrocardiogram [ECG] [EKG]; Z68.35 Body mass index [BMI] 35.0-35.9, adult | CPT/HCPCS: 83036; 93005; 99212; 99397 ==